=== PATIENT | female | born 1930 | race Caucasian/White ===

== ENCOUNTER 2017-02-01 12:44 | Emergency (ER) | payer MEDICARE, OTHER ==
--- NOTE | 2017-02-01 13:50 | RAD ---
Indication: Shortness of breath. History of chronic obstructive pulmonary disease. History of tobacco use. Comparison: April 04, 2016 chest radiograph and April 04, 2011 CT. Technique: Upright AP 1332 hours Report: Elevated lung volumes and both diffuse mild prominence of the interstitial markings and patchy rarefaction of the mid to upper lung zone interstitial markings. En face calcification at the level of the anterior RIGHT third rib is unchanged compared with the 2010 CT without concern. Mild bibasilar alveolar consolidation may represent atelectasis or inflammatory infiltrate. Negative for cardiomegaly. Unremarkable central pulmonary vasculature and mediastinal contours. Markedly advanced arthropathy of the glenohumeral joints which may reflect inflammatory arthropathy with secondary degenerative arthropathy or neuropathic arthropathy. IMPRESSION: Stigmata of obstructive lung disease. Bibasilar alveolar opacities may reflect atelectasis or pneumonia.
[2017-02-01 15:18] LABS: Hematocrit 39 % (35-47); Hemoglobin 12.7 g/dl (12.0-16.0); Mean Corpuscular HGB Conc 33 g/dl (31-36); Mean Corpuscular Hemoglobin 34 pg (27-31); Mean Corpuscular Volume 104 fL (80-97); Mean Platelet Volume 8 um3 (7.4-10.4); Red Blood Count 3.72 10^6/ul (4.0-5.4); Red Cell Distribution Width 13 % (10.5-15)
[2017-02-01 15:19] LABS: Add Diff/Slide Review? Slide Review Added; Comments Flag Yes
[2017-02-01] MEDS ORDERED: Levofloxacin 750 MG IVPREMIX(* 750 MG/150 ML BAG IVPB ONE (15:31)
[2017-02-01 15:33] LABS: Albumin 3.8 g/dL (3.2-5.2); BUN/Creatinine Ratio 23.9 (8-20); Calcium 9.5 mg/dL (8.6-10.3); EGFR African American 100.6 (>60); EGFR Non-African American 78.2 (>60); Globulin 3.3 g/dL (2-4); Potassium 3.8 mmol/L (3.5-5.0); Total Bilirubin 0.5 mg/dL (0.2-1.0); Total Protein 7.1 g/dL (6.4-8.9)
[2017-02-01 15:36] LABS: Troponin I 0.01 ng/mL (<0.04)
[2017-02-01] MEDS ORDERED: Albuterol/Ipratropium NEB.SOL* Albuterol 2.5 MG/Ipratropium 0.5 MG 3 ML INH ONE (16:44)
[2017-02-01 17:39] VITALS: BP 121/55
--- NOTE | 2017-02-01 18:34 | ED ---
Leonardo Stern Thomas, scribed for Camilo Wood MD on 02/01/17 at 1318 . Respiratory - HPI Summary HPI Summary: The pt is an 86 y/o F with a Hx of COPD BIBA from [facility] c/o low SaO2. Per EMS, her SaO2 has 81 when EMS arrived. In the ED at the time of examination , her SaO2 is 95. She is on 5L of oxygen at home. In the ambulance, EMS was able to raise her SaO2 to 92. Pt additionally c/o L arm pain (attributed to arthritis), feelings of hotness and coldness. Pt denies CP and SOB. PMHx: COPD, PNA, HLD, HTN, angina, osteoarthritis, mild dementia. PSHx: R mastectomy, neck surgery, back surgery. SHx: former smoker, no illicit drugs, no alcohol. EMS also relays concerns that she has been able to take medication at home for an unclear reason. Her PCP is Dr. Rodriguez. - History of Current Complaint Stated Complaint: DIFF BREATHING Time Seen by Provider: 02/01/17 13:07 Hx Obtained From: Patient, EMS Onset/Duration: Still Present - at home, EMS resports that her SaO2 was 81 Timing: Constant Aggravating Factor(s): Nothing Alleviating Factor(s): Oxygen - NC Associated Signs and Symptoms: Negative - Allergy/Home Medications Allergies/Adverse Reactions: Allergies Allergy/AdvReac Type Severity Reaction Status Date / Time Aspirin Allergy Unknown Unknown Verified 02/21/14 03:48 Reaction Details Pollen Extract Allergy Unknown Unknown Verified 02/21/14 03:48 Reaction Details tape Allergy Intermediate Rash Uncoded 02/21/14 03:48 Home Medications: Home Medications Amoxicillin/Clavulanate TAB* [Augmentin TAB 875*] 875 mg PO BID 02/01/17 [ History Confirmed 02/01/17] Carboxymethylcellulose-Glyceri [Optive] 1 jasen BOTH EYES QID 02/01/17 [History Confirmed 02/01/17] Levothyroxine TAB* [Synthroid 100 MCG TAB*] 100 mcg PO QAM 02/01/17 [History Confirmed 02/01/17] Psyllium [Metamucil] 0.52 gm PO DAILY PRN 02/01/17 [History Confirmed 02/01/17] Sertraline* [Zoloft*] 25 mg PO DAILY 02/01/17 [History Confirmed 02/01/17] PMH/Surg Hx/FS Hx/Imm Hx Previously Healthy: No Endocrine/Hematology History: Reports: Hx Thyroid Disease - hypo Denies: Hx Anticoagulant Therapy, Hx Diabetes, Hx Anemia, Hx Unexplained Bleeding Cardiovascular History: Reports: Hx Angina, Hx Hypercholesterolemia - HLD, Hx Hypertension, Hx Peripheral Vascular Disease Denies: Hx Aneurysm, Hx Angioplasty, Hx Auto Implanted Cardiovert Defib, Hx Cardiac Arrest, Hx Cardiomegaly, Hx Congenital Heart Disease, Hx Congestive Heart Failure, Hx Coronary Artery Disease, Hx Deep Vein Thrombosis, Hx Hypotension, Hx Myocardial Infarction, Hx Pacemaker/ICD, Hx Rheumatic Fever, Hx Syncope, Hx Valvular Heart Disease, Other Cardiovascular Problems/Disorders Respiratory History: Reports: Hx Chronic Bronchitis, Hx Chronic Obstructive Pulmonary Disease (COPD), Hx Pneumonia, Hx Sleep Apnea, Other Respiratory Problems/Disorders - pneumonia Denies: Hx Asthma, Hx Cystic Fibrosis, Hx Lung Cancer, Hx Pleural Effusion, Hx Pulmonary Edema, Hx Pulmonary Embolism, Hx Seasonal Allergies GI History: Reports: Hx Hiatal Hernia, Hx Ulcer, Other GI Disorders - PUD History: Reports: Other Problems/Disorders - STRESS INCONTENENCE Denies: Hx Renal Disease Musculoskeletal History: Reports: Hx Arthritis, Hx Back Problems - SPINAL STENOSIS, BACK PAIN, Hx Orthopedic Injury - RIGHT FOOT FX, Hx Osteoporosis Denies: Hx Bursitis, Hx Congenital Bone Abnormalities, Hx Fibromyalgia, Hx Gout, Hx Scoliosis, Hx Tendonitis, Other Musculoskeletal History Sensory History: Reports: Hx Cataracts, Hx Contacts or Glasses Denies: Hx Eye Injury, Hx Eye Prosthesis, Hx Glaucoma, Hx Macular Degeneration, Hx Vision Problem, Hx Deafness, Hx Hearing Aid, Hx Hearing Problem , Other Sensory Impairments Opthamlomology History: Reports: Hx Cataracts, Hx Contacts or Glasses Denies: Hx Eye Injury, Hx Eye Prosthesis, Hx Glaucoma, Hx Macular Degeneration, Hx Vision Problem, Other Sensory Impairments Neurological History: Reports: Hx Dementia - mild, Hx Migraine - Takes meds for migraines, Other Neuro Impairments/Disorders - NEUROPATHY HANDS & FEET Denies: Hx Seizures Psychiatric History: Denies: Hx Substance Abuse - Cancer History Cancer Type, Location and Year: breast cancer masectomy to rt breast 1974 Hx Palliative Cancer Treatment: No - Surgical History Surgery Procedure, Year, and Place: RIGHT MASTECTOMY,. LT GSV STRIPPED YEARS AND YEARS AGO. Back Surgery- 1998 and 2002. Neck Surgery- 2003. Cataract surgery 2012. gall bladder, ulcert, masectomy, hernia. 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 Negative: Shortness Of Breath All Other Systems Reviewed And Are Negative: Yes Physical Exam Triage Information Reviewed: Yes Vital Signs On Initial Exam: Initial Vitals Temp Pulse Resp BP Pulse Ox 99 F 78 18 119/67 96 02/01/17 13:20 02/01/17 13:20 02/01/17 13:20 02/01/17 13:20 02/01/17 13:20 Vital Signs Reviewed: Yes Appearance: Positive: Well-Appearing, No Pain Distress Skin: Positive: Warm, Skin Color Reflects Adequate Perfusion, Dry Head/Face: Positive: Normal Head/Face Inspection Eyes: Positive: Normal ENT: Positive: Normal ENT inspection Neck: Positive: Supple, Nontender Respiratory/Lung Sounds: Positive: Clear to Auscultation, Breath Sounds Present Cardiovascular: Positive: RRR Abdomen Description: Positive: Nontender, Soft Bowel Sounds: Positive: Present Musculoskeletal: Positive: Normal, Strength/ROM Intact Neurological: Positive: Normal Psychiatric: Positive: Normal, Affect/Mood Appropriate Diagnostics - Vital Signs Vital Signs Temp Pulse Resp BP Pulse Ox 02/01/17 17:41 97.9 F 80 19 121/55 02/01/17 17:30 77 17 121/55 92 02/01/17 17:08 78 18 99 02/01/17 17:03 76 14 140/65 87 02/01/17 17:00 72 15 71/42 98 02/01/17 16:30 74 16 120/54 96 02/01/17 16:27 74 18 122/51 97 02/01/17 15:59 74 16 96 02/01/17 15:58 74 97 02/01/17 15:56 124/60 02/01/17 15:53 97 02/01/17 15:02 97.8 F 74 17 135/67 99 02/01/17 13:24 99 F 85 18 119/67 96 02/01/17 13:20 99 F 78 18 119/67 96 - Laboratory Lab Results: Lab Results 02/01/17 02/01/17 02/01/17 Range/Units 15:10 15:10 15:10 WBC 21.0 H (3.5-10.8) 10^3/ul RBC 3.72 L (4.0-5.4) 10^6/ul Hgb 12.7 (12.0-16.0) g/dl Hct 39 (35-47) % MCV 104 H (80-97) fL MCH 34 H (27-31) pg MCHC 33 (31-36) g/dl RDW 13 (10.5-15) % Plt Count 320 (150-450) 10^3/ul MPV 8 (7.4-10.4) um3 Neut % (Auto) 85.3 H (38-83) % Lymph % (Auto) 5.8 L (25-47) % Kern % (Auto) 8.2 (1-9) % Eos % (Auto) 0 (0-6) % Baso % (Auto) 0.7 (0-2) % Absolute Neuts (auto) 17.9 H (1.5-7.7) 10^3/ul Absolute Lymphs (auto) 1.2 (1.0-4.8) 10^3/ul Absolute Monos (auto) 1.7 H (0-0.8) 10^3/ul Absolute Eos (auto) 0 (0-0.6) 10^3/ul Absolute Basos (auto) 0.1 (0-0.2) 10^3/ul Absolute Nucleated RBC 0.01 10^3/ul Nucleated RBC % 0 INR (Anticoag Therapy) 1.02 (0.89-1.11) D-Dimer, Quantitative < 200 (Less Than 230) ng/mL Sodium 137 (133-145) mmol/L Potassium 3.8 (3.5-5.0) mmol/L Chloride 100 L (101-111) mmol/L Carbon Dioxide 31 (22-32) mmol/L Anion Gap 6 (2-11) mmol/L BUN 17 (6-24) mg/dL Creatinine 0.71 (0.51-0.95) mg/dL Est GFR ( Amer) 100.6 (>60) Est GFR (Non-Af Amer) 78.2 (>60) BUN/Creatinine Ratio 23.9 H (8-20) Glucose 121 H (70-100) mg/dL Lactic Acid (0.5-2.0) mmol/L Calcium 9.5 (8.6-10.3) mg/dL Total Bilirubin 0.50 (0.2-1.0) mg/dL AST 14 (13-39) U/L ALT 6 L (7-52) U/L Alkaline Phosphatase 81 (34-104) U/L Troponin I 0.01 (<0.04) ng/mL B-Natriuretic Peptide ( - 100) pg/mL Total Protein 7.1 (6.4-8.9) g/dL Albumin 3.8 (3.2-5.2) g/dL Globulin 3.3 (2-4) g/dL Albumin/Globulin Ratio 1.2 (1-3) 02/01/17 02/01/17 Range/Units 15:10 15:10 WBC (3.5-10.8) 10^3/ul RBC (4.0-5.4) 10^6/ul Hgb (12.0-16.0) g/dl Hct (35-47) % MCV (80-97) fL MCH (27-31) pg MCHC (31-36) g/dl RDW (10.5-15) % Plt Count (150-450) 10^3/ul MPV (7.4-10.4) um3 Neut % (Auto) (38-83) % Lymph % (Auto) (25-47) % Kern % (Auto) (1-9) % Eos % (Auto) (0-6) % Baso % (Auto) (0-2) % Absolute Neuts (auto) (1.5-7.7) 10^3/ul Absolute Lymphs (auto) (1.0-4.8) 10^3/ul Absolute Monos (auto) (0-0.8) 10^3/ul Absolute Eos (auto) (0-0.6) 10^3/ul Absolute Basos (auto) (0-0.2) 10^3/ul Absolute Nucleated RBC 10^3/ul Nucleated RBC % INR (Anticoag Therapy) (0.89-1.11) D-Dimer, Quantitative (Less Than 230) ng/mL Sodium (133-145) mmol/L Potassium (3.5-5.0) mmol/L Chloride (101-111) mmol/L Carbon Dioxide (22-32) mmol/L Anion Gap (2-11) mmol/L BUN (6-24) mg/dL Creatinine (0.51-0.95) mg/dL Est GFR ( Amer) (>60) Est GFR (Non-Af Amer) (>60) BUN/Creatinine Ratio (8-20) Glucose (70-100) mg/dL Lactic Acid 1.2 (0.5-2.0) mmol/L Calcium (8.6-10.3) mg/dL Total Bilirubin (0.2-1.0) mg/dL AST (13-39) U/L ALT (7-52) U/L Alkaline Phosphatase (34-104) U/L Troponin I (<0.04) ng/mL B-Natriuretic Peptide 69 ( - 100) pg/mL Total Protein (6.4-8.9) g/dL Albumin (3.2-5.2) g/dL Globulin (2-4) g/dL Albumin/Globulin Ratio (1-3) Result Diagrams: 02/01/17 15:10 02/01/17 15:10 Lab Statement: Any lab studies that have been ordered have been reviewed, and results considered in the medical decision making process. - Radiology CXR Xray Interpretation: Positive (See Comments) - Stigmata of obstructive lung disease. Bibasilar alveolar opacities may reflect atelectasis or pneumonia. Radiology Interpretation Completed By: Radiologist - EKG 17:30 Cardiac Rate: NL - 79 BPM EKG Interpretation: Sinus rhythm. Nonspecific anterolateral changes, consistent with 04/04/16. Disposition - Course Course Of Treatment: Ms. Pyle reportedly had a low SPO2 at [facility]. She is normally on 5 L O2 by OR and was kept on that by the EMS crew and she maintained her sats for them. Here, she was found to have pneumonia and I am concerned that she will end up in the hospital but she is quite stable now and so she was given the first dose of antibiotics IV and D/C'd with PO Levaquin for F/U. - Diagnoses Provider Diagnoses: Pneumonia Discharge - Discharge Plan Condition: Stable Disposition: HOME Prescriptions: Levofloxacin TAB* [Levaquin TAB*] 750 mg PO DAILY #10 tab Methylprednisolone [Medrol Dosepak 4 MG*] 4 mg PO .SEE HECTOR INSTRUCTION #1 tab Patient Education Materials: Pneumonia (ED) Referrals: Sheryl Rodriguez MD [Primary Care Provider] - 3 Days Additional Instructions: Follow up with your doctor. The documentation as recorded by the Leonardo jerry Thomas accurately reflects the service I personally performed and the decisions made by me, Camilo Wood MD.
== END 2017-02-01 18:03 | disposition home or self-care (01) ==
LOC: ED 12:44
DX: J18.9 Pneumonia, unspecified organism (principal); Z87.891 Personal history of nicotine dependence
CPT/HCPCS: 36415; 71010; 80053; 83605; 83880; 84484; 85025; 85379; 85610; 93005; 94640; 99283; A9270-GY

== ENCOUNTER 2017-02-15 19:42 | Inpatient (IN) | payer MEDICARE, OTHER ==
[2017-02-15] MEDS ORDERED: Albuterol/Ipratropium NEB.SOL* Albuterol 2.5 MG/Ipratropium 0.5 MG 3 ML INH ONE ×2 (20:09→21:03)
--- NOTE | 2017-02-15 20:53 | RAD ---
INDICATION: Shortness of breath. COMPARISON: Comparison is made with prior chest x-ray studies from June 28, 2015 and February 01, 2017. TECHNIQUE: A portable view of the chest was obtained. FINDINGS: Cardiac and mediastinal contours appear to be within normal limits. There is calcification which projects over the right upper lobe. The lungs are underinflated. There are small bibasilar infiltrates. No pleural effusion is seen. Note is made of severe osteoarthritic change in the shoulders. IMPRESSION: SMALL BIBASILAR INFILTRATES.
[2017-02-15] MEDS ORDERED: methylPREDNISolone 125 MG* 2 ML VIAL IV ONE (21:03)
[2017-02-15 21:23] LABS: Hematocrit 37 % (35-47); Hemoglobin 12.5 g/dl (12.0-16.0); Mean Corpuscular HGB Conc 34 g/dl (31-36); Mean Corpuscular Hemoglobin 35 pg (27-31); Mean Corpuscular Volume 103 fL (80-97); Mean Platelet Volume 7 um3 (7.4-10.4); Red Blood Count 3.59 10^6/ul (4.0-5.4); Red Cell Distribution Width 13 % (10.5-15); White Blood Count 7.1 10^3/ul (3.5-10.8)
[2017-02-15 21:38] LABS: Albumin 3.7 g/dL (3.2-5.2); BUN/Creatinine Ratio 27.7 (8-20); C Reactive Protein 4.43 mg/L (< 5.00); Calcium 9.3 mg/dL (8.6-10.3); EGFR African American 111.4 (>60); EGFR Non-African American 86.6 (>60); Globulin 3.1 g/dL (2-4); Potassium 4.1 mmol/L (3.5-5.0); Total Bilirubin 0.2 mg/dL (0.2-1.0); Total Protein 6.8 g/dL (6.4-8.9)
[2017-02-15 21:40] LABS: Troponin I 0.03 ng/mL (<0.04)
[2017-02-15] MEDS ORDERED: Butalb/Acetamin/Caff TAB* 1 TAB ONE (21:46)
[2017-02-15] MEDS ORDERED: Butalb/Acetamin/Caff TAB* 1 TAB PO ONE (21:49)
[2017-02-15] MEDS ORDERED: Azithromycin TAB* 250 MG PO ONE (22:36)
[2017-02-15] MEDS ORDERED: Magnesium Hydroxide LIQ* 30 ML UDC PO PRN (22:49)
--- NOTE | 2017-02-15 22:56 | PN ---
Nicolasa Stern SooYoung, scribed for Henok Leigh on 02/15/17 at 2255 . Progress Note - Progress Note Date of Service: 02/15/17 Note: SO by Dr. Wood at shift change pending hospitalist seeing pt in ED. 2200: Consulted with Dr. Rueda, hospitalist Will accept pt for admission. DX: PNA The documentation as recorded by the cliffordibNicolasa stephens SooYoung accurately reflects the service I personally performed and the decisions made by Lu farr Emmanuel.
[2017-02-16] MEDS: fentaNYL PATCH 75 MCG/HR* 75 MCG TRANSDERM SCH (00:30)
[2017-02-16] MEDS: Butalb/Acetamin/Caff TAB* 1 TAB PO PRN ×3 (00:38→21:59)
[2017-02-16] MEDS: Albuterol 2.5 MG/3 ML NEB.SOL* (0.083%) INH SCH ×4 (01:18→19:40)
--- NOTE | 2017-02-16 02:22 | HP ---
CC: Dr. Sheryl Rodriguez * HISTORY AND PHYSICAL: DATE OF ADMISSION: 02/15/17 PRIMARY CARE PROVIDER: Dr. Sheryl Rodriguez. ATTENDING PHYSICIAN: Dr. Tigre Rueda * (dictated by Roseanna Jensen NP) CHIEF COMPLAINT: Shortness of breath. HISTORY OF PRESENT ILLNESS: Ms. Pyle is an 86-year-old female with a past medical history significant for hypertension; sleep apnea, uses a BiPAP; chronic obstructive pulmonary disease, on supplemental oxygen; hypothyroidism; spinal stenosis; peptic ulcer disease; depression; migraines; chronic back pain who presents to the emergency room from [facility] with complaints of increased shortness of breath. The patient reports that she was seen recently approximately 2 weeks ago in the emergency room and was diagnosed with a pneumonia. She was sent home and completed her 10-day course of Levaquin and Medrol Dosepak. The patient states that she had been feeling better each day after her last hospitalization in October and in addition to feeling better since her pneumonia diagnosis, but the patient reports that this evening she developed troubled breathing that was not relieved by her inhaler. She reports that since her pneumonia diagnosis that she would increase her oxygen use to 5 L but prior to that, she had been on oxygen at 3 L at rest and 5 L with walking. The patient denies any fever, chills, chest pain, nausea, vomiting, diarrhea, urinary symptoms, although she does endorse feeling "hot." She was unable to find anything that made her breathing better or worse. She denies any urinary symptoms, but does report constipation due to chronic and narcotic use for her chronic back pain. The patient was brought to the emergency room for further evaluation of her symptoms. While in the emergency room, the patient received IV Solu-Medrol in addition to DuoNeb. The patient was on 5 L nasal cannula, satting 100% on 5 L. The patient also had a chest x-ray showing small bilateral infiltrates. She had labs that were fairly unremarkable and Hospitalists were asked to evaluate the patient for admission. PAST MEDICAL HISTORY: 1. Hypertension. 2. Sleep apnea, with BiPAP. 3. Chronic obstructive pulmonary disease, with supplemental oxygen. 4. Hypothyroidism. 5. Spinal stenosis. 6. Osteoporosis. 7. Peptic ulcer disease. 8. Depression. 9. Migraines. 10. Chronic back pain. 11. Breast cancer. PAST SURGICAL HISTORY: 1. Status post cholecystectomy. 2. Status post mastectomy. 3. Status post cataract extraction. 4. Status post tonsillectomy. HOME MEDICATIONS: Include: 1. Oxycodone 15 mg oral every 4 hours as needed while awake. 2. Guaifenesin ER 600 mg oral twice daily. 3. Fentanyl patch 75 mcg transdermally every 72 hours. 4. Amlodipine 5 mg oral every morning. 5. Spiriva 1 capsule inhalation daily. 6. Sertraline 75 mg oral daily. 7. Metamucil 0.52 g oral daily as needed for constipation. 8. Protonix 40 mg oral daily. 9. Nystatin powder apply topical twice daily as needed for itching. 10. Multivitamin 1 tablet oral daily. 11. Ocuvite I vitamin 1 tablet oral daily. 12. Milk of magnesia 30 mg oral daily as needed for constipation. 13. Levothyroxine 100 mcg oral every morning. 14. Gabapentin 300 mg oral 3 times daily. 15. Advair Diskus 500/50 one puff inhalation twice daily. 16. Flonase 1 spray to both nares daily. 17. Colace 100 mg oral daily. 18. Depakote ER 500 mg oral every evening. 19. Refresh eye drops one drop to both eyes twice daily. 20. Viactiv 500-500-40 one oral daily. 21. Fioricet 1 tablet oral every 6 hours as needed for headache, maximum of 14 tablets a week. 22. Combivent inhaler 1 puff inhalation every 4 hours as needed for shortness of breath or wheeze. 23. DuoNeb 1 nebulizer inhalation 3 times daily as needed for shortness of breath or wheeze. 24. EasiVent inhaler daily as needed for shortness of breath. 25. Ciclopirox 1% shampoo topical to hair every 48 hours. ALLERGIES: ASPIRIN, POLLEN, ADHESIVE. FAMILY HISTORY: The patient denies any family history of coronary artery disease, diabetes mellitus. The patient's sister had a history of breast cancer. SOCIAL HISTORY: The patient is a former smoker, quitting many years ago. She had a [id number] history of one pack a day smoking. The patient denies alcohol or recreational drug use. The patient lives at [facility]. Her daughter, Sasha Pyle, will be her surrogate decision maker in the event she is unable to make decision for herself. REVIEW OF SYSTEMS: I performed a 14-point review of systems. All the pertinent positives and negatives are mentioned in the history of present illness. The remaining review of systems is negative. PHYSICAL EXAMINATION GENERAL APPEARANCE: The patient is alert, pleasant, appears to be in no acute distress. VITAL SIGNS: Temperature 98.5, heart rate 81, respiratory rate 28, O2 sat 100% on 5 L via nasal cannula, blood pressure 151/70. HEENT: Normocephalic, atraumatic. Pupils are equal and reactive to light. Extraocular movements are intact. RESPIRATORY: There is no accessory muscle use and lungs are clear, but diminished bilaterally. CARDIOVASCULAR: Regular rate and rhythm. S1 and S2 present. There are no murmurs, rubs, or gallops heard. ABDOMEN: Soft, nontender, and nondistended. There are bowel sounds present x4. EXTREMITIES: There is no lower extremity edema. DP and PT pulses are 2+ and symmetric. MUSCULOSKELETAL: There is no clubbing or cyanosis noted. The patient exhibits good strength in all extremities. NEUROLOGIC: The patient is alert and oriented x4. Cranial nerves II through XII are grossly intact. PSYCHOLOGICAL: The patient is calm and cooperative. SKIN: There are no rashes or abnormalities seen. DIAGNOSTIC STUDIES/LABORATORY DATA: Sodium 137, potassium 4.1, chloride 102, CO2 32, BUN 18, creatinine 0.65, glucose 124. White blood cell count 7.1, hemoglobin 12.5, hematocrit 37, and platelet count 395. Troponin 0.03. BNP of 59, D-dimer of less than 200. EKG shows sinus rhythm with rate of 72. There are no acute signs of ischemia. This EKG is similar to previous EKG from 02/01/17. Chest x-ray from today. Radiologist's impression: Small bilateral infiltrate. IMPRESSION: Ms. Pyle is an 86-year-old female with past medical history significant for hypertension, chronic obstructive pulmonary disease, hypothyroidism, sleep apnea, spinal stenosis, peptic ulcer disease, depression, migraines, chronic back pain who presents to the emergency room with complaints of shortness of breath. She will be admitted as an inpatient for chronic obstructive pulmonary disease exacerbation. ASSESSMENT AND PLAN: 1. Shortness of breath. I suspect this is secondary to chronic obstructive pulmonary disease exacerbation. The patient is feeling better in the emergency room after IV Solu-Medrol and a DuoNeb. The patient will be continued on oral prednisone in addition to azithromycin. We will place her on routine albuterol nebulizers while awake. The patient will be continued on her usual supplemental oxygen of 3 L via nasal cannula while at rest and 5 while ambulating. We will continue the patient on her home medications of Spiriva and Advair. 2. Chronic respiratory failure. This is secondary to her chronic obstructive pulmonary disease. The patient will be continued on her home O2. 3. Depression. The patient will be continued on her home sertraline and Depakote. 4. Sleep apnea. Continue the patient on oxygen tonight. We will verify her BiPAP settings and she will use her BiPAP at bedtime. 5. Chronic pain. The patient will be continued on her home fentanyl patch in addition to as-needed oxycodone for her pain and Fioricet for her migraines. 6. Hypertension. The patient will be continued on her home amlodipine. 7. Fluids, electrolytes, and nutrition. The patient will be on a regular diet. 8. Code status. Do not resuscitate. 9. DVT prophylaxis. The patient is at highest risk and will be placed on subcutaneous heparin. 10. Disposition. Inpatient with estimated length of stay 3 days. TIME SPENT: Time for this admission was approximately 60 minutes, greater than half of that was spent with the patient discussing medications, past medical history, and events leading up to her arrival today and performing a physical examination. The case has been reviewed with the attending, Dr. Rueda, who agrees with the plan of care. Reviewed by PARAS HUSAIN 02/16/17 1845 [id number]/[facility] #: [id number] LAURITA
[2017-02-16] MEDS: Heparin VIAL(*) 5000 UNITS/ML VIAL (FIVE THOUSAND) SUBCUT SCH ×3 (06:43→21:09)
[2017-02-16] MEDS: Tiotropium CAP.INH* CAP.INH/18 MCG INH SCH (07:18)
[2017-02-16] MEDS: Mometasone/Formoter 200/5 MDI INH SCH ×2 (07:18→20:15)
[2017-02-16] MEDS: fentaNYL Patch Check Q Shift 1 NOTE SCH ×2 (07:38→19:04)
[2017-02-16] MEDS: Levothyroxine TAB* 100 MCG TAB PO SCH (07:48)
[2017-02-16] MEDS: predniSONE TAB* 20 MG PO SCH (08:37)
[2017-02-16] MEDS: Omeprazole CAP* 20 MG PO SCH (08:37)
[2017-02-16] MEDS: Docusate CAP* 100 MG PO SCH (08:37)
[2017-02-16] MEDS: Multivitamins/Minerals TAB PO SCH (08:37)
[2017-02-16] MEDS: Gabapentin CAP(*) 300 MG PO SCH ×3 (08:37→21:07)
[2017-02-16] MEDS: guaiFENesin ER TAB 600 MG PO SCH ×2 (08:37→21:07)
[2017-02-16] MEDS: Sertraline* 25 MG TAB PO SCH (08:43)
[2017-02-16] MEDS: Artificial Tears* 15 ML BTL BOTH EYES SCH ×2 (08:44→21:09)
[2017-02-16] MEDS: Fluticasone NASAL SPRAY 50MCG* 16 gm SPRAY BTL BOTH NARES SCH (08:45)
[2017-02-16] MEDS: Sertraline* 50 MG TAB PO SCH (08:45)
[2017-02-16] MEDS ORDERED: Amoxicillin/Clavulanate TAB* 875 MG PO SCH (09:00)
[2017-02-16] MEDS ORDERED: amLODIPine TAB* 5 MG PO SCH (09:00)
[2017-02-16] MEDS ORDERED: Spiriva Inhaler DEVICE* 1 EACH DEVICE INH ONE (09:00)
[2017-02-16] MEDS: Multivitamins/Minera Areds(NF) 1 CAP CAP PO SCH (09:11)
[2017-02-16] MEDS: oxyCODONE TAB* 5 MG TAB PO PRN ×2 (09:29→22:07)
--- NOTE | 2017-02-16 11:36 | ED ---
Rony Stern Nikita, scribed for Camilo Wood MD on 02/15/17 at 2008 . Shortness of Breath - HPI Summary HPI Summary: Pt is a 86 y/o F BIBA from [facility] who presents to the ED c/o of SOB since 1600. SOB characterized as dyspnea at rest. Sx aggravated and alleviated by nothing. 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 Pt was previously in the ED on 02/01/17 for PNA. She was sent home on 5L of O2. PMHx of COPD. - History of Current Complaint Chief Complaint: EDShortnessOfBreath Time Seen by Provider: 02/15/17 19:50 Hx Obtained From: Patient Onset/Duration: Lasting Hours - Since 1599, Still Present Timing: Constant Dyspnea At: Rest Aggrevating Factors: Nothing Alleviating Factors: Nothing - Allergy/Home Medications Allergies/Adverse Reactions: Allergies Allergy/AdvReac Type Severity Reaction Status Date / Time Aspirin Allergy Unknown Unknown Verified 02/15/17 19:56 Reaction Details Pollen Extract Allergy Unknown Unknown Verified 02/15/17 19:56 Reaction Details tape Allergy Intermediate Rash Uncoded 02/15/17 19:56 Home Medications: Home Medications Spacer/Aerosol-Holding Chamber [Easivent] 1 mis INH DAILY PRN 02/15/17 [History Confirmed 02/15/17] PMH/Surg Hx/FS Hx/Imm Hx Endocrine/Hematology History: Reports: Hx Thyroid Disease - hypo Denies: Hx Anticoagulant Therapy, Hx Diabetes, Hx Anemia, Hx Unexplained Bleeding Cardiovascular History: Reports: Hx Angina, Hx Hypercholesterolemia - HLD, Hx Hypertension, Hx Peripheral Vascular Disease Denies: Hx Aneurysm, Hx Angioplasty, Hx Auto Implanted Cardiovert Defib, Hx Cardiac Arrest, Hx Cardiomegaly, Hx Congenital Heart Disease, Hx Congestive Heart Failure, Hx Coronary Artery Disease, Hx Deep Vein Thrombosis, Hx Hypotension, Hx Myocardial Infarction, Hx Pacemaker/ICD, Hx Rheumatic Fever, Hx Syncope, Hx Valvular Heart Disease, Other Cardiovascular Problems/Disorders Respiratory History: Reports: Hx Chronic Bronchitis, Hx Chronic Obstructive Pulmonary Disease (COPD), Hx Pneumonia, Hx Sleep Apnea, Other Respiratory Problems/Disorders - pneumonia Denies: Hx Asthma, Hx Cystic Fibrosis, Hx Lung Cancer, Hx Pleural Effusion, Hx Pulmonary Edema, Hx Pulmonary Embolism, Hx Seasonal Allergies GI History: Reports: Hx Hiatal Hernia, Hx Ulcer, Other GI Disorders - PUD History: Reports: Other Problems/Disorders - STRESS INCONTENENCE Denies: Hx Renal Disease Musculoskeletal History: Reports: Hx Arthritis, Hx Back Problems - SPINAL STENOSIS, BACK PAIN, Hx Orthopedic Injury - RIGHT FOOT FX, Hx Osteoporosis Denies: Hx Bursitis, Hx Congenital Bone Abnormalities, Hx Fibromyalgia, Hx Gout, Hx Scoliosis, Hx Tendonitis, Other Musculoskeletal History Sensory History: Reports: Hx Cataracts, Hx Contacts or Glasses Denies: Hx Eye Injury, Hx Eye Prosthesis, Hx Glaucoma, Hx Macular Degeneration, Hx Vision Problem, Hx Deafness, Hx Hearing Aid, Hx Hearing Problem , Other Sensory Impairments Opthamlomology History: Reports: Hx Cataracts, Hx Contacts or Glasses Denies: Hx Eye Injury, Hx Eye Prosthesis, Hx Glaucoma, Hx Macular Degeneration, Hx Vision Problem, Other Sensory Impairments Neurological History: Reports: Hx Dementia - mild, Hx Migraine - Takes meds for migraines, Other Neuro Impairments/Disorders - NEUROPATHY HANDS & FEET Denies: Hx Seizures Psychiatric History: Denies: Hx Substance Abuse - Cancer History Cancer Type, Location and Year: breast cancer masectomy to rt breast 1974 Hx Palliative Cancer Treatment: No - Surgical History Surgery Procedure, Year, and Place: RIGHT MASTECTOMY,. LT GSV STRIPPED YEARS AND YEARS AGO. Back Surgery- 1998 and 2002. Neck Surgery- 2003. Cataract surgery 2011. gall bladder, ulcert, masectomy, hernia. 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 Denies: Hx Hepatitis, Hx Human Immunodeficiency Virus (HIV), Hx Tuberculosis , Traveled Outside the [place] in Last 30 Days - Family History Known Family History: Negative: Cardiac Disease - Social History Alcohol Use: None Hx Substance Use: No Substance Use Type: Reports: None Hx Tobacco Use: Yes Smoking Status (MU): Former Smoker Type: Cigarettes Length of Time of Smoking/Using Tobacco: 35 years Have You Smoked in the Last Year: No Review of Systems Negative: Fever Positive: Shortness Of Breath - dyspnea at rest All Other Systems Reviewed And Are Negative: Yes Physical Exam Triage Information Reviewed: Yes Vital Signs On Initial Exam: Initial Vitals Temp Pulse Resp BP Pulse Ox 98.7 F 77 20 130/71 100 02/15/17 19:43 02/15/17 19:43 02/15/17 19:43 02/15/17 19:43 02/15/17 19:43 Vital Signs Reviewed: Yes Appearance: Positive: Well-Appearing, No Pain Distress Skin: Positive: Warm, Skin Color Reflects Adequate Perfusion, Dry Head/Face: Positive: Normal Head/Face Inspection Eyes: Positive: Normal ENT: Positive: Normal ENT inspection Neck: Positive: Supple, Nontender Respiratory/Lung Sounds: Positive: Clear to Auscultation, Breath Sounds Present Cardiovascular: Positive: RRR Abdomen Description: Positive: Nontender, Soft Bowel Sounds: Positive: Present Musculoskeletal: Positive: Normal Neurological: Positive: Normal Psychiatric: Positive: Normal, Affect/Mood Appropriate Diagnostics - Vital Signs Vital Signs Temp Pulse Resp BP Pulse Ox 02/15/17 19:43 98.7 F 77 20 130/71 100 - Laboratory Lab Results: Lab Results 02/15/17 02/15/17 02/15/17 Range/Units 21:11 21:11 21:11 WBC 7.1 (3.5-10.8) 10^3/ul RBC 3.59 L (4.0-5.4) 10^6/ul Hgb 12.5 (12.0-16.0) g/dl Hct 37 (35-47) % MCV 103 H (80-97) fL MCH 35 H (27-31) pg MCHC 34 (31-36) g/dl RDW 13 (10.5-15) % Plt Count 395 (150-450) 10^3/ul MPV 7 L (7.4-10.4) um3 Neut % (Auto) 71.2 (38-83) % Lymph % (Auto) 14.8 L (25-47) % Hendry % (Auto) 11.9 H (1-9) % Eos % (Auto) 1.6 (0-6) % Baso % (Auto) 0.5 (0-2) % Absolute Neuts (auto) 5.0 (1.5-7.7) 10^3/ul Absolute Lymphs (auto) 1.0 (1.0-4.8) 10^3/ul Absolute Monos (auto) 0.8 (0-0.8) 10^3/ul Absolute Eos (auto) 0.1 (0-0.6) 10^3/ul Absolute Basos (auto) 0 (0-0.2) 10^3/ul Absolute Nucleated RBC 0 10^3/ul Nucleated RBC % 0 INR (Anticoag Therapy) 0.87 L (0.89-1.11) D-Dimer, Quantitative < 200 (Less Than 230) ng/mL Sodium 137 (133-145) mmol/L Potassium 4.1 (3.5-5.0) mmol/L Chloride 102 (101-111) mmol/L Carbon Dioxide 32 (22-32) mmol/L Anion Gap 3 (2-11) mmol/L BUN 18 (6-24) mg/dL Creatinine 0.65 (0.51-0.95) mg/dL Est GFR ( Amer) 111.4 (>60) Est GFR (Non-Af Amer) 86.6 (>60) BUN/Creatinine Ratio 27.7 H (8-20) Glucose 124 H (70-100) mg/dL Lactic Acid (0.5-2.0) mmol/L Calcium 9.3 (8.6-10.3) mg/dL Total Bilirubin 0.20 (0.2-1.0) mg/dL AST 14 (13-39) U/L ALT 7 (7-52) U/L Alkaline Phosphatase 80 (34-104) U/L Troponin I 0.03 (<0.04) ng/mL C-Reactive Protein 4.43 (< 5.00) mg/L B-Natriuretic Peptide ( - 100) pg/mL Total Protein 6.8 (6.4-8.9) g/dL Albumin 3.7 (3.2-5.2) g/dL Globulin 3.1 (2-4) g/dL Albumin/Globulin Ratio 1.2 (1-3) 02/15/17 02/15/17 Range/Units 21:11 21:11 WBC (3.5-10.8) 10^3/ul RBC (4.0-5.4) 10^6/ul Hgb (12.0-16.0) g/dl Hct (35-47) % MCV (80-97) fL MCH (27-31) pg MCHC (31-36) g/dl RDW (10.5-15) % Plt Count (150-450) 10^3/ul MPV (7.4-10.4) um3 Neut % (Auto) (38-83) % Lymph % (Auto) (25-47) % Hendry % (Auto) (1-9) % Eos % (Auto) (0-6) % Baso % (Auto) (0-2) % Absolute Neuts (auto) (1.5-7.7) 10^3/ul Absolute Lymphs (auto) (1.0-4.8) 10^3/ul Absolute Monos (auto) (0-0.8) 10^3/ul Absolute Eos (auto) (0-0.6) 10^3/ul Absolute Basos (auto) (0-0.2) 10^3/ul Absolute Nucleated RBC 10^3/ul Nucleated RBC % INR (Anticoag Therapy) (0.89-1.11) D-Dimer, Quantitative (Less Than 230) ng/mL Sodium (133-145) mmol/L Potassium (3.5-5.0) mmol/L Chloride (101-111) mmol/L Carbon Dioxide (22-32) mmol/L Anion Gap (2-11) mmol/L BUN (6-24) mg/dL Creatinine (0.51-0.95) mg/dL Est GFR ( Amer) (>60) Est GFR (Non-Af Amer) (>60) BUN/Creatinine Ratio (8-20) Glucose (70-100) mg/dL Lactic Acid 1.4 (0.5-2.0) mmol/L Calcium (8.6-10.3) mg/dL Total Bilirubin (0.2-1.0) mg/dL AST (13-39) U/L ALT (7-52) U/L Alkaline Phosphatase (34-104) U/L Troponin I (<0.04) ng/mL C-Reactive Protein (< 5.00) mg/L B-Natriuretic Peptide 59 ( - 100) pg/mL Total Protein (6.4-8.9) g/dL Albumin (3.2-5.2) g/dL Globulin (2-4) g/dL Albumin/Globulin Ratio (1-3) Result Diagrams: 02/15/17 21:11 02/15/17 21:11 Lab Statement: Any lab studies that have been ordered have been reviewed, and results considered in the medical decision making process. - Radiology CXR Xray Interpretation: No Acute Changes - SMALL BIBASILAR INFILTRATES. Radiology Interpretation Completed By: Radiologist - EKG 2022 Cardiac Rate: NL - 72 bpm EKG Rhythm: Sinus Rhythm ST Segment: Non-Specific - Non-specific ST changes Course/Dx - Course Course Of Treatment: Ms. Pyle presented with a hhistory of being SOB and having a low SPO2 at the [place] as wel as in the EMS rig. She was placed on a NRBM which helped and on arrival here she was comfortable being put back on her 5l NC which is normal for her. She had reduced BS's and was treated with nebs and solumedrol. She had been diagnosed with pneumonia a couple weeks ago and had improved until now. Her CXR still shows some infiltrate but I think it is improved from 2 weeks ago. Her leukocytosis has resolved. She will likely need more time for the steroids to work and the hospitalists have been consulted. - Diagnoses Provider Diagnoses: COPD exacerbation - Physician Notifications Discussed Care of Patient With: Tigre Rueda Time Discussed With Above Provider: 21:02 Instructed by Provider To: MD Will See In ED - Critical Care Time Critical Care Time: 30-74 min Discharge - Discharge Plan Condition: Stable Disposition: OTHER Discharge Disposition Comment: Pt will be signed out to Dr. Leigh, pending dispo, awaiting MD consult The documentation as recorded by the Rony jerry Nikita accurately reflects the service I personally performed and the decisions made by me, Camilo Wood MD.
--- NOTE | 2017-02-16 15:17 | PN ---
Subjective Date of Service: 02/16/17 Interval History: Pt feels close to her baseline. Usually pt is on 3 L of 02, now comfortable at 2 L Objective Active Medications: Acetaminophen/Butalbital/Caffeine (Fioricet Tab*) 1 tab PO BID PRN PRN Reason: MIGRAINE HEADACHE Last Admin: 02/16/17 09:33 Dose: 1 tab Albuterol (Ventolin 2.5 Mg/3 Ml Neb.Chely*) 2.5 mg INH [id number] AWAKE [facility] Last Admin: 02/16/17 12:46 Dose: 2.5 mg Amlodipine Besylate (Norvasc Tab*) 5 mg PO QAM [facility] Last Admin: 02/16/17 08:44 Dose: 5 mg Divalproex Sodium (Depakote Er Tab(*)) 500 mg PO QPM [facility] Docusate Sodium (Colace Cap*) 100 mg PO DAILY [facility] Last Admin: 02/16/17 08:37 Dose: 100 mg Fentanyl (Duragesic Patch 75 Mcg/Hr*) 75 mcg TRANSDERM Q72H [facility] Last Admin: 02/16/17 00:30 Dose: 75 mcg Fluticasone Propionate (Flonase Nasal [place] 50mcg*) 1 spray BOTH NARES DAILY [facility] Last Admin: 02/16/17 08:45 Dose: 1 spray Gabapentin (Neurontin Cap(*)) 300 mg PO TID [facility] Last Admin: 02/16/17 14:55 Dose: 300 mg Guaifenesin (Mucinex*) 600 mg PO BID [facility] Last Admin: 02/16/17 08:37 Dose: 600 mg Heparin Sodium (Porcine) (Heparin Vial(*)) 5,000 units SUBCUT Q8HR [facility] Last Admin: 02/16/17 14:55 Dose: 5,000 units Levothyroxine Sodium (Synthroid Tab*) 100 mcg PO DAILY@0600 [facility] Last Admin: 02/16/17 07:48 Dose: 100 mcg Magnesium Hydroxide (Milk Of Magnesia Liq*) 30 ml PO DAILY PRN PRN Reason: CONSTIPATION Mometasone Furoate/Formoterol Fumar (Dulera 200/5 Mdi*) 2 puff INH BID [facility] Last Admin: 02/16/17 07:18 Dose: 2 puff Multivitamins/Minerals (Preservision Areds(Multivitamins/Mineral)(Nf)) 1 cap PO DAILY [facility] Last Admin: 02/16/17 09:11 Dose: 1 cap Multivitamins/Minerals (Theragran/Minerals Tab*) 1 tab PO DAILY [facility] Last Admin: 02/16/17 08:37 Dose: 1 tab Omeprazole (Prilosec Cap*) 20 mg PO DAILY@0730 [facility] Last Admin: 02/16/17 08:37 Dose: 20 mg Oxycodone HCl (Roxycodone Tab*) 15 mg PO Q4H PRN PRN Reason: PAIN Last Admin: 02/16/17 09:29 Dose: 15 mg Pharmacy Profile Note (Fentanyl Patch Check Q Shift) 1 note N/A 0700,1900 [facility] Last Admin: 02/16/17 07:38 Dose: 1 note Polyvinyl Alcohol (Polyvinyl Alcohol 1.4% Opth*) 1 drop BOTH EYES BID [facility] Last Admin: 02/16/17 08:44 Dose: 1 drop Prednisone (Deltasone Tab*) 40 mg PO DAILY WITH MEAL [facility] Last Admin: 02/16/17 08:37 Dose: 40 mg Psyllium Hydrophilic Mucilloid (Metamucil Hang*) 1 pkt PO DAILY PRN PRN Reason: CONSTIPATION Sertraline HCl (Zoloft*) 25 mg PO DAILY [facility] Last Admin: 02/16/17 08:43 Dose: 25 mg Sertraline HCl (Zoloft*) 50 mg PO DAILY [facility] Last Admin: 02/16/17 08:45 Dose: 50 mg Tiotropium [place] (Spiriva Cap.Inh*) 1 cap INH DAILY [facility] Last Admin: 02/16/17 07:18 Dose: 1 cap Vital Signs 02/15/17 02/15/17 02/16/17 23:16 23:59 00:38 Temperature 98.4 F Pulse Rate 72 72 Respiratory 18 18 Rate Blood Pressure 151/62 151/62 (mmHg) O2 Sat by Pulse 94 94 Oximetry 02/16/17 02/16/17 02/16/17 01:20 02:38 04:01 Temperature 97.6 F Pulse Rate 79 Respiratory 18 16 16 Rate Blood Pressure 150/62 (mmHg) O2 Sat by Pulse 98 94 Oximetry 02/16/17 02/16/17 02/16/17 07:22 07:48 08:00 Temperature 98.2 F Pulse Rate 78 72 Respiratory 15 16 14 Rate Blood Pressure 149/65 (mmHg) O2 Sat by Pulse 97 94 Oximetry 02/16/17 02/16/17 02/16/17 08:37 09:29 09:33 Temperature Pulse Rate Respiratory 12 14 14 Rate Blood Pressure (mmHg) O2 Sat by Pulse Oximetry 02/16/17 02/16/17 02/16/17 10:37 11:29 11:33 Temperature Pulse Rate Respiratory 18 14 14 Rate Blood Pressure (mmHg) O2 Sat by Pulse Oximetry 02/16/17 02/16/17 12:48 14:55 Temperature Pulse Rate 78 Respiratory 17 12 Rate Blood Pressure (mmHg) O2 Sat by Pulse 92 Oximetry Oxygen Devices in Use Now: Nasal Cannula - at 2 L, 02 sat 92% Appearance: 86 yo F in nAD, AAOx3 Eyes: No Scleral Icterus, PERRLA Ears/Nose/Mouth/Throat: NL Teeth, Lips, Gums, Mucous Membranes Moist Neck: NL Appearance and Movements; NL JVP, Trachea Midline Respiratory: Symmetrical Chest Expansion and Respiratory Effort, Clear to Auscultation, - - distant breath sounds b/l Cardiovascular: RRR Abdominal: NL Sounds; No Tenderness; No Distention, No Hepatosplenomegaly Lymphatic: No Cervical Adenopathy Extremities: No Edema, No Clubbing, Cyanosis Skin: No Rash or Ulcers, No Nodules or Sclerosis Neurological: Alert and Oriented x 3, NL Muscle Strength and Tone Result Diagrams: 02/15/17 21:11 02/15/17 21:11 Additional Lab and Data: Lab Results 02/15/17 02/15/17 02/15/17 Range/Units 21:11 21:11 21:11 WBC 7.1 (3.5-10.8) 10^3/ul RBC 3.59 L (4.0-5.4) 10^6/ul Hgb 12.5 (12.0-16.0) g/dl Hct 37 (35-47) % MCV 103 H (80-97) fL MCH 35 H (27-31) pg MCHC 34 (31-36) g/dl RDW 13 (10.5-15) % Plt Count 395 (150-450) 10^3/ul MPV 7 L (7.4-10.4) um3 Neut % (Auto) 71.2 (38-83) % Lymph % (Auto) 14.8 L (25-47) % Crawford % (Auto) 11.9 H (1-9) % Eos % (Auto) 1.6 (0-6) % Baso % (Auto) 0.5 (0-2) % Absolute Neuts (auto) 5.0 (1.5-7.7) 10^3/ul Absolute Lymphs (auto) 1.0 (1.0-4.8) 10^3/ul Absolute Monos (auto) 0.8 (0-0.8) 10^3/ul Absolute Eos (auto) 0.1 (0-0.6) 10^3/ul Absolute Basos (auto) 0 (0-0.2) 10^3/ul Absolute Nucleated RBC 0 10^3/ul Nucleated RBC % 0 INR (Anticoag Therapy) 0.87 L (0.89-1.11) D-Dimer, Quantitative < 200 (Less Than 230) ng/mL Sodium 137 (133-145) mmol/L Potassium 4.1 (3.5-5.0) mmol/L Chloride 102 (101-111) mmol/L Carbon Dioxide 32 (22-32) mmol/L Anion Gap 3 (2-11) mmol/L BUN 18 (6-24) mg/dL Creatinine 0.65 (0.51-0.95) mg/dL Est GFR ( Amer) 111.4 (>60) Est GFR (Non-Af Amer) 86.6 (>60) BUN/Creatinine Ratio 27.7 H (8-20) Glucose 124 H (70-100) mg/dL Lactic Acid (0.5-2.0) mmol/L Calcium 9.3 (8.6-10.3) mg/dL Total Bilirubin 0.20 (0.2-1.0) mg/dL AST 14 (13-39) U/L ALT 7 (7-52) U/L Alkaline Phosphatase 80 (34-104) U/L Troponin I 0.03 (<0.04) ng/mL C-Reactive Protein 4.43 (< 5.00) mg/L B-Natriuretic Peptide ( - 100) pg/mL Total Protein 6.8 (6.4-8.9) g/dL Albumin 3.7 (3.2-5.2) g/dL Globulin 3.1 (2-4) g/dL Albumin/Globulin Ratio 1.2 (1-3) 02/15/17 02/15/17 Range/Units 21:11 21:11 WBC (3.5-10.8) 10^3/ul RBC (4.0-5.4) 10^6/ul Hgb (12.0-16.0) g/dl Hct (35-47) % MCV (80-97) fL MCH (27-31) pg MCHC (31-36) g/dl RDW (10.5-15) % Plt Count (150-450) 10^3/ul MPV (7.4-10.4) um3 Neut % (Auto) (38-83) % Lymph % (Auto) (25-47) % Crawford % (Auto) (1-9) % Eos % (Auto) (0-6) % Baso % (Auto) (0-2) % Absolute Neuts (auto) (1.5-7.7) 10^3/ul Absolute Lymphs (auto) (1.0-4.8) 10^3/ul Absolute Monos (auto) (0-0.8) 10^3/ul Absolute Eos (auto) (0-0.6) 10^3/ul Absolute Basos (auto) (0-0.2) 10^3/ul Absolute Nucleated RBC 10^3/ul Nucleated RBC % INR (Anticoag Therapy) (0.89-1.11) D-Dimer, Quantitative (Less Than 230) ng/mL Sodium (133-145) mmol/L Potassium (3.5-5.0) mmol/L Chloride (101-111) mmol/L Carbon Dioxide (22-32) mmol/L Anion Gap (2-11) mmol/L BUN (6-24) mg/dL Creatinine (0.51-0.95) mg/dL Est GFR ( Amer) (>60) Est GFR (Non-Af Amer) (>60) BUN/Creatinine Ratio (8-20) Glucose (70-100) mg/dL Lactic Acid 1.4 (0.5-2.0) mmol/L Calcium (8.6-10.3) mg/dL Total Bilirubin (0.2-1.0) mg/dL AST (13-39) U/L ALT (7-52) U/L Alkaline Phosphatase (34-104) U/L Troponin I (<0.04) ng/mL C-Reactive Protein (< 5.00) mg/L B-Natriuretic Peptide 59 ( - 100) pg/mL Total Protein (6.4-8.9) g/dL Albumin (3.2-5.2) g/dL Globulin (2-4) g/dL Albumin/Globulin Ratio (1-3) Microbiology and Other Data: Microbiology 02/16/17 00:30 Nasal Screen MRSA (PCR)([facility]) - Final Nasal Mrsa Negative Assess/Plan/Problems-Billing Assessment: Pt is an 83 y/o F w/ PMH significant for COPD (on home oxygen at 3- 5 L), HTN, hypothyroidism, migraines, chronic back pain who presents to the ER from [facility] with SOB. Diagnosed and treated with pneumonia 2 weeks prior to admission - Patient Problems (1) COPD (chronic obstructive pulmonary disease) Status: Acute Comment: in mild exacerbation. Cont Prednisone PO cont nebs. On her baseline . Recieved Azithromycin in ED. no further tx needed. bibasiliar infiltrates on CXR are likely atelectasis related (2) Chronic pain Comment: Pt takes multiple medications and is followed by Dr. South. cont meds as at home (3) Hypothyroidism Comment: TSH 1.6 in 09/2016. Will cont Synthroid (4) HTN (hypertension) Comment: Uncontrolled. Increasing Amlodipine, for SBP >140 (5) Physical deconditioning Comment: As d/w Dr. Rodriguez pt now uses 2 canes and has problems ambulating getting her treatments as scheduled at [facility]. SW/PT/OT ordered. Would benefit from STR (6) DVT prophylaxis Comment: HSQ (7) TJ (obstructive sleep apnea) Comment: BIPAP at night Status and Disposition: inpatient
[2017-02-16] MEDS: Divalproex ER TAB(*) 500 MG PO SCH (17:42)
[2017-02-16] MEDS: Nystatin SUSPENSION* 100000 UNITS/ML 5 ML UDC PO SCH (23:16)
[2017-02-17] MEDS: Albuterol 2.5 MG/3 ML NEB.SOL* (0.083%) INH SCH ×4 (00:22→18:59)
[2017-02-17] MEDS: Butalb/Acetamin/Caff TAB* 1 TAB PO PRN ×3 (05:28→23:46)
[2017-02-17] MEDS: Levothyroxine TAB* 100 MCG TAB PO SCH (05:29)
[2017-02-17] MEDS: Heparin VIAL(*) 5000 UNITS/ML VIAL (FIVE THOUSAND) SUBCUT SCH ×3 (05:29→21:26)
[2017-02-17] MEDS: fentaNYL Patch Check Q Shift 1 NOTE SCH ×2 (07:27→19:34)
[2017-02-17] MEDS: Tiotropium CAP.INH* CAP.INH/18 MCG INH SCH (07:45)
[2017-02-17] MEDS: Mometasone/Formoter 200/5 MDI INH SCH ×2 (07:45→19:15)
[2017-02-17] MEDS: Nystatin SUSPENSION* 100000 UNITS/ML 5 ML UDC PO SCH ×4 (09:02→21:24)
[2017-02-17] MEDS: Artificial Tears* 15 ML BTL BOTH EYES SCH ×2 (09:03→20:20)
[2017-02-17] MEDS: Fluticasone NASAL SPRAY 50MCG* 16 gm SPRAY BTL BOTH NARES SCH (09:04)
[2017-02-17] MEDS: amLODIPine TAB* 5 MG PO SCH (09:04)
[2017-02-17] MEDS: Multivitamins/Minerals TAB PO SCH (09:05)
[2017-02-17] MEDS: Sertraline* 25 MG TAB PO SCH (09:05)
[2017-02-17] MEDS: Sertraline* 50 MG TAB PO SCH (09:06)
[2017-02-17] MEDS: guaiFENesin ER TAB 600 MG PO SCH ×2 (09:06→20:17)
[2017-02-17] MEDS: Gabapentin CAP(*) 300 MG PO SCH ×3 (09:06→20:17)
[2017-02-17] MEDS: Omeprazole CAP* 20 MG PO SCH (09:07)
[2017-02-17] MEDS: predniSONE TAB* 20 MG PO SCH (09:07)
[2017-02-17] MEDS: Multivitamins/Minera Areds(NF) 1 CAP CAP PO SCH (09:09)
[2017-02-17] MEDS: Docusate CAP* 100 MG PO SCH (09:09)
--- NOTE | 2017-02-17 13:23 | PN ---
Subjective Date of Service: 02/17/17 Interval History: Litle subj change or sl better. Much GTZ, desaturated with exercise. Little cough. Chronic daily headaches and back pain, no change. Objective Active Medications: Acetaminophen/Butalbital/Caffeine (Fioricet Tab*) 1 tab PO BID PRN PRN Reason: MIGRAINE HEADACHE Last Admin: 02/17/17 05:28 Dose: 1 tab Albuterol (Ventolin 2.5 Mg/3 Ml Neb.Chely*) 2.5 mg INH [id number] AWAKE [facility] Last Admin: 02/17/17 07:44 Dose: 2.5 mg Amlodipine Besylate (Norvasc Tab*) 10 mg PO QAM [facility] Last Admin: 02/17/17 09:04 Dose: 10 mg Divalproex Sodium (Depakote Er Tab(*)) 500 mg PO QPM [facility] Last Admin: 02/16/17 17:42 Dose: 500 mg Docusate Sodium (Colace Cap*) 100 mg PO DAILY [facility] Last Admin: 02/17/17 09:09 Dose: 100 mg Fentanyl (Duragesic Patch 75 Mcg/Hr*) 75 mcg TRANSDERM Q72H [facility] Last Admin: 02/16/17 00:30 Dose: 75 mcg Fluticasone Propionate (Flonase Nasal [place] 50mcg*) 1 spray BOTH NARES DAILY [facility] Last Admin: 02/17/17 09:04 Dose: 1 spray Gabapentin (Neurontin Cap(*)) 300 mg PO TID [facility] Last Admin: 02/17/17 09:06 Dose: 300 mg Guaifenesin (Mucinex*) 600 mg PO BID [facility] Last Admin: 02/17/17 09:06 Dose: 600 mg Heparin Sodium (Porcine) (Heparin Vial(*)) 5,000 units SUBCUT Q8HR [facility] Last Admin: 02/17/17 05:29 Dose: 5,000 units Levothyroxine Sodium (Synthroid Tab*) 100 mcg PO DAILY@0600 [facility] Last Admin: 02/17/17 05:29 Dose: 100 mcg Magnesium Hydroxide (Milk Of Magnesia Liq*) 30 ml PO DAILY PRN PRN Reason: CONSTIPATION Mometasone Furoate/Formoterol Fumar (Dulera 200/5 Mdi*) 2 puff INH BID [facility] Last Admin: 02/17/17 07:45 Dose: 2 puff Multivitamins/Minerals (Preservision Areds(Multivitamins/Mineral)(Nf)) 1 cap PO DAILY [facility] Last Admin: 02/17/17 09:09 Dose: Not Given Multivitamins/Minerals (Theragran/Minerals Tab*) 1 tab PO DAILY [facility] Last Admin: 02/17/17 09:05 Dose: 1 tab Nystatin (Nystatin Suspension*) 500,000 units PO QID [facility] Stop: 02/23/17 22:20 Last Admin: 02/17/17 09:02 Dose: 500,000 units Omeprazole (Prilosec Cap*) 20 mg PO DAILY@0730 [facility] Last Admin: 02/17/17 09:07 Dose: 20 mg Oxycodone HCl (Roxycodone Tab*) 15 mg PO Q4H PRN PRN Reason: PAIN Last Admin: 02/16/17 22:07 Dose: 15 mg Pharmacy Profile Note (Fentanyl Patch Check Q Shift) 1 note N/A 0700,1900 [facility] Last Admin: 02/17/17 07:27 Dose: 1 note Polyvinyl Alcohol (Polyvinyl Alcohol 1.4% Opth*) 1 drop BOTH EYES BID [facility] Last Admin: 02/17/17 09:03 Dose: 1 drop Prednisone (Deltasone Tab*) 40 mg PO DAILY WITH MEAL [facility] Last Admin: 02/17/17 09:07 Dose: 40 mg Psyllium Hydrophilic Mucilloid (Metamucil Hang*) 1 pkt PO DAILY PRN PRN Reason: CONSTIPATION Sertraline HCl (Zoloft*) 25 mg PO DAILY [facility] Last Admin: 02/17/17 09:05 Dose: 25 mg Sertraline HCl (Zoloft*) 50 mg PO DAILY [facility] Last Admin: 02/17/17 09:06 Dose: 50 mg Tiotropium [place] (Spiriva Cap.Inh*) 1 cap INH DAILY [facility] Last Admin: 02/17/17 07:45 Dose: 1 cap Vital Signs 02/16/17 02/16/17 02/16/17 14:55 15:18 16:55 Temperature 98.4 F Pulse Rate 76 Respiratory 12 16 14 Rate Blood Pressure 128/53 (mmHg) O2 Sat by Pulse 90 Oximetry 02/16/17 02/16/17 02/16/17 19:48 20:00 21:07 Temperature Pulse Rate 89 Respiratory 18 23 23 Rate Blood Pressure (mmHg) O2 Sat by Pulse 92 Oximetry 02/16/17 02/16/17 02/16/17 21:59 22:07 23:07 Temperature Pulse Rate Respiratory 20 20 20 Rate Blood Pressure (mmHg) O2 Sat by Pulse Oximetry 02/16/17 02/17/17 02/17/17 23:59 00:07 00:24 Temperature 98.0 F Pulse Rate 64 Respiratory 22 22 16 Rate Blood Pressure 120/43 (mmHg) O2 Sat by Pulse 91 Oximetry 02/17/17 02/17/17 02/17/17 03:53 05:28 07:47 Temperature 97.7 F Pulse Rate 58 56 Respiratory 16 20 14 Rate Blood Pressure 138/61 (mmHg) O2 Sat by Pulse 92 95 Oximetry 02/17/17 09:06 Temperature Pulse Rate Respiratory 14 Rate Blood Pressure (mmHg) O2 Sat by Pulse Oximetry Oxygen Devices in Use Now: Nasal Cannula - at 2 L, 02 sat 92% Appearance: Alert, sl up in bed. In fair spirits. Looks comfortable. No cough during my visit. Eyes: No Scleral Icterus Ears/Nose/Mouth/Throat: Clear Oropharnyx, Mucous Membranes Moist Neck: NL Appearance and Movements; NL JVP, No Thyroid Enlargement, Masses Respiratory: Symmetrical Chest Expansion and Respiratory Effort, Clear to Percussion, - - diminished BS BL Cardiovascular: NL Sounds; No Murmurs; No JVD, RRR, No Edema, - Extremities: No Edema, No Clubbing, Cyanosis, - Skin: No Rash or Ulcers, No Nodules or Sclerosis, - Neurological: Alert and Oriented x 3, NL Sensation Result Diagrams: 02/15/17 21:11 02/15/17 21:11 Additional Lab and Data: Lab Results 02/15/17 02/15/17 02/15/17 Range/Units 21:11 21:11 21:11 WBC 7.1 (3.5-10.8) 10^3/ul RBC 3.59 L (4.0-5.4) 10^6/ul Hgb 12.5 (12.0-16.0) g/dl Hct 37 (35-47) % MCV 103 H (80-97) fL MCH 35 H (27-31) pg MCHC 34 (31-36) g/dl RDW 13 (10.5-15) % Plt Count 395 (150-450) 10^3/ul MPV 7 L (7.4-10.4) um3 Neut % (Auto) 71.2 (38-83) % Lymph % (Auto) 14.8 L (25-47) % [place] % (Auto) 11.9 H (1-9) % Eos % (Auto) 1.6 (0-6) % Baso % (Auto) 0.5 (0-2) % Absolute Neuts (auto) 5.0 (1.5-7.7) 10^3/ul Absolute Lymphs (auto) 1.0 (1.0-4.8) 10^3/ul Absolute Monos (auto) 0.8 (0-0.8) 10^3/ul Absolute Eos (auto) 0.1 (0-0.6) 10^3/ul Absolute Basos (auto) 0 (0-0.2) 10^3/ul Absolute Nucleated RBC 0 10^3/ul Nucleated RBC % 0 INR (Anticoag Therapy) 0.87 L (0.89-1.11) D-Dimer, Quantitative < 200 (Less Than 230) ng/mL Sodium 137 (133-145) mmol/L Potassium 4.1 (3.5-5.0) mmol/L Chloride 102 (101-111) mmol/L Carbon Dioxide 32 (22-32) mmol/L Anion Gap 3 (2-11) mmol/L BUN 18 (6-24) mg/dL Creatinine 0.65 (0.51-0.95) mg/dL Est GFR ( Amer) 111.4 (>60) Est GFR (Non-Af Amer) 86.6 (>60) BUN/Creatinine Ratio 27.7 H (8-20) Glucose 124 H (70-100) mg/dL Lactic Acid (0.5-2.0) mmol/L Calcium 9.3 (8.6-10.3) mg/dL Total Bilirubin 0.20 (0.2-1.0) mg/dL AST 14 (13-39) U/L ALT 7 (7-52) U/L Alkaline Phosphatase 80 (34-104) U/L Troponin I 0.03 (<0.04) ng/mL C-Reactive Protein 4.43 (< 5.00) mg/L B-Natriuretic Peptide ( - 100) pg/mL Total Protein 6.8 (6.4-8.9) g/dL Albumin 3.7 (3.2-5.2) g/dL Globulin 3.1 (2-4) g/dL Albumin/Globulin Ratio 1.2 (1-3) 02/15/17 02/15/17 Range/Units 21:11 21:11 WBC (3.5-10.8) 10^3/ul RBC (4.0-5.4) 10^6/ul Hgb (12.0-16.0) g/dl Hct (35-47) % MCV (80-97) fL MCH (27-31) pg MCHC (31-36) g/dl RDW (10.5-15) % Plt Count (150-450) 10^3/ul MPV (7.4-10.4) um3 Neut % (Auto) (38-83) % Lymph % (Auto) (25-47) % [place] % (Auto) (1-9) % Eos % (Auto) (0-6) % Baso % (Auto) (0-2) % Absolute Neuts (auto) (1.5-7.7) 10^3/ul Absolute Lymphs (auto) (1.0-4.8) 10^3/ul Absolute Monos (auto) (0-0.8) 10^3/ul Absolute Eos (auto) (0-0.6) 10^3/ul Absolute Basos (auto) (0-0.2) 10^3/ul Absolute Nucleated RBC 10^3/ul Nucleated RBC % INR (Anticoag Therapy) (0.89-1.11) D-Dimer, Quantitative (Less Than 230) ng/mL Sodium (133-145) mmol/L Potassium (3.5-5.0) mmol/L Chloride (101-111) mmol/L Carbon Dioxide (22-32) mmol/L Anion Gap (2-11) mmol/L BUN (6-24) mg/dL Creatinine (0.51-0.95) mg/dL Est GFR ( Amer) (>60) Est GFR (Non-Af Amer) (>60) BUN/Creatinine Ratio (8-20) Glucose (70-100) mg/dL Lactic Acid 1.4 (0.5-2.0) mmol/L Calcium (8.6-10.3) mg/dL Total Bilirubin (0.2-1.0) mg/dL AST (13-39) U/L ALT (7-52) U/L Alkaline Phosphatase (34-104) U/L Troponin I (<0.04) ng/mL C-Reactive Protein (< 5.00) mg/L B-Natriuretic Peptide 59 ( - 100) pg/mL Total Protein (6.4-8.9) g/dL Albumin (3.2-5.2) g/dL Globulin (2-4) g/dL Albumin/Globulin Ratio (1-3) Microbiology and Other Data: Microbiology 02/16/17 00:30 Nasal Screen MRSA (PCR)(ELA) - Final Nasal Mrsa Negative Assess/Plan/Problems-Billing Assessment: Pt is an 83 y/o F w/ PMH significant for COPD (on home oxygen at 3- 5 L), HTN, hypothyroidism, migraines, chronic back pain who presents to the ER from [facility] with SOB. Diagnosed and treated with pneumonia 2 weeks prior to admission - Patient Problems (1) COPD (chronic obstructive pulmonary disease) Current Visit: No Status: Acute Code(s): J44.9 - CHRONIC OBSTRUCTIVE PULMONARY DISEASE, UNSPECIFIED SNOMED Code(s): 33553396 Comment: in mild exacerbation. Prednisone taper cont nebs. On her baseline 02. Recieved Azithromycin in ED. no further tx needed. bibasiliar infiltrates on CXR are likely atelectasis related. She remains afebrile since admission. (2) Hypothyroidism Current Visit: No Status: Acute Code(s): E03.9 - HYPOTHYROIDISM, UNSPECIFIED SNOMED Code(s): 86166506 Comment: TSH 1.6 in 09/2016. Will cont Synthroid (3) HTN (hypertension) Current Visit: No Status: Acute Code(s): I10 - ESSENTIAL (PRIMARY) HYPERTENSION SNOMED Code(s): 47071041 Comment: Continue increased dose ofr Amlodipine. Status and Disposition: inpatient
[2017-02-17] MEDS: oxyCODONE TAB* 5 MG TAB PO PRN ×2 (15:30→23:46)
[2017-02-17] MEDS: Divalproex ER TAB(*) 500 MG PO SCH (17:59)
[2017-02-18] MEDS: Albuterol 2.5 MG/3 ML NEB.SOL* (0.083%) INH SCH ×4 (01:02→20:25)
[2017-02-18] MEDS: Levothyroxine TAB* 100 MCG TAB PO SCH (05:56)
[2017-02-18] MEDS: oxyCODONE TAB* 5 MG TAB PO PRN ×2 (05:56→22:20)
[2017-02-18] MEDS: Heparin VIAL(*) 5000 UNITS/ML VIAL (FIVE THOUSAND) SUBCUT SCH ×3 (06:01→21:18)
[2017-02-18] MEDS: fentaNYL Patch Check Q Shift 1 NOTE SCH ×2 (06:50→19:16)
[2017-02-18] MEDS: Mometasone/Formoter 200/5 MDI INH SCH ×2 (08:10→20:25)
[2017-02-18] MEDS: Tiotropium CAP.INH* CAP.INH/18 MCG INH SCH (08:10)
[2017-02-18] MEDS: Artificial Tears* 15 ML BTL BOTH EYES SCH ×2 (08:12→22:30)
[2017-02-18] MEDS: Omeprazole CAP* 20 MG PO SCH (08:12)
[2017-02-18] MEDS: Nystatin SUSPENSION* 100000 UNITS/ML 5 ML UDC PO SCH ×4 (08:12→21:17)
[2017-02-18] MEDS: Sertraline* 25 MG TAB PO SCH (08:12)
[2017-02-18] MEDS: Docusate CAP* 100 MG PO SCH (08:12)
[2017-02-18] MEDS: Sertraline* 50 MG TAB PO SCH (08:12)
[2017-02-18] MEDS: Fluticasone NASAL SPRAY 50MCG* 16 gm SPRAY BTL BOTH NARES SCH (08:12)
[2017-02-18] MEDS: amLODIPine TAB* 5 MG PO SCH (08:13)
[2017-02-18] MEDS: Multivitamins/Minerals TAB PO SCH (08:13)
[2017-02-18] MEDS: guaiFENesin ER TAB 600 MG PO SCH ×2 (08:13→21:16)
[2017-02-18] MEDS: predniSONE TAB* 20 MG PO SCH (08:13)
[2017-02-18] MEDS: Gabapentin CAP(*) 300 MG PO SCH ×3 (08:13→21:17)
[2017-02-18] MEDS: Multivitamins/Minera Areds(NF) 1 CAP CAP PO SCH (08:15)
[2017-02-18] MEDS: Butalb/Acetamin/Caff TAB* 1 TAB PO PRN ×2 (09:08→15:38)
[2017-02-18] MEDS ORDERED: predniSONE TAB* 10 MG PO SCH (11:34)
--- NOTE | 2017-02-18 12:04 | PN ---
Subjective Date of Service: 02/18/17 Interval History: No subj change. Objective Active Medications: Acetaminophen/Butalbital/Caffeine (Fioricet Tab*) 1 tab PO BID PRN PRN Reason: MIGRAINE HEADACHE Last Admin: 02/18/17 09:08 Dose: 1 tab Albuterol (Ventolin 2.5 Mg/3 Ml Neb.Chely*) 2.5 mg INH [id number] AWAKE [facility] Last Admin: 02/18/17 08:06 Dose: 2.5 mg Amlodipine Besylate (Norvasc Tab*) 10 mg PO QAM [facility] Last Admin: 02/18/17 08:13 Dose: 10 mg Divalproex Sodium (Depakote Er Tab(*)) 500 mg PO QPM [facility] Last Admin: 02/17/17 17:59 Dose: 500 mg Docusate Sodium (Colace Cap*) 100 mg PO DAILY [facility] Last Admin: 02/18/17 08:12 Dose: 100 mg Fentanyl (Duragesic Patch 75 Mcg/Hr*) 75 mcg TRANSDERM Q72H [facility] Last Admin: 02/16/17 00:30 Dose: 75 mcg Fluticasone Propionate (Flonase Nasal [place] 50mcg*) 1 spray BOTH NARES DAILY [facility] Last Admin: 02/18/17 08:12 Dose: 1 spray Gabapentin (Neurontin Cap(*)) 300 mg PO TID [facility] Last Admin: 02/18/17 08:13 Dose: 300 mg Guaifenesin (Mucinex*) 600 mg PO BID [facility] Last Admin: 02/18/17 08:13 Dose: 600 mg Heparin Sodium (Porcine) (Heparin Vial(*)) 5,000 units SUBCUT Q8HR [facility] Last Admin: 02/18/17 06:01 Dose: 5,000 units Levothyroxine Sodium (Synthroid Tab*) 100 mcg PO DAILY@0600 [facility] Last Admin: 02/18/17 05:56 Dose: 100 mcg Magnesium Hydroxide (Milk Of Magnesia Liq*) 30 ml PO DAILY PRN PRN Reason: CONSTIPATION Mometasone Furoate/Formoterol Fumar (Dulera 200/5 Mdi*) 2 puff INH BID [facility] Last Admin: 02/18/17 08:10 Dose: 2 puff Multivitamins/Minerals (Theragran/Minerals Tab*) 1 tab PO DAILY [facility] Last Admin: 02/18/17 08:13 Dose: 1 tab Nystatin (Nystatin Suspension*) 500,000 units PO QID [facility] Stop: 02/23/17 22:20 Last Admin: 02/18/17 08:12 Dose: 500,000 units Omeprazole (Prilosec Cap*) 20 mg PO DAILY@0730 [facility] Last Admin: 02/18/17 08:12 Dose: 20 mg Oxycodone HCl (Roxycodone Tab*) 15 mg PO Q4H PRN PRN Reason: PAIN Last Admin: 02/18/17 05:56 Dose: 15 mg Pharmacy Profile Note (Fentanyl Patch Check Q Shift) 1 note N/A 0700,1900 [facility] Last Admin: 02/18/17 06:50 Dose: 1 note Polyvinyl Alcohol (Polyvinyl Alcohol 1.4% Opth*) 1 drop BOTH EYES BID [facility] Last Admin: 02/18/17 08:12 Dose: 1 drop Prednisone (Deltasone Tab*) 30 mg PO DAILY WITH MEAL [facility] Psyllium Hydrophilic Mucilloid (Metamucil Hang*) 1 pkt PO DAILY PRN PRN Reason: CONSTIPATION Sertraline HCl (Zoloft*) 25 mg PO DAILY [facility] Last Admin: 02/18/17 08:12 Dose: 25 mg Sertraline HCl (Zoloft*) 50 mg PO DAILY [facility] Last Admin: 02/18/17 08:12 Dose: 50 mg Tiotropium [place] (Spiriva Cap.Inh*) 1 cap INH DAILY [facility] Last Admin: 02/18/17 08:10 Dose: 1 cap Vital Signs 02/17/17 02/17/17 02/17/17 13:41 15:12 15:29 Temperature Pulse Rate 62 88 Respiratory 18 20 Rate Blood Pressure (mmHg) O2 Sat by Pulse 92 92 Oximetry 02/17/17 02/17/17 02/17/17 15:30 17:29 17:30 Temperature Pulse Rate Respiratory 20 14 20 Rate Blood Pressure (mmHg) O2 Sat by Pulse Oximetry 02/17/17 02/17/17 02/17/17 19:18 19:35 20:00 Temperature 98.3 F Pulse Rate 74 73 Respiratory 18 20 18 Rate Blood Pressure 140/56 (mmHg) O2 Sat by Pulse 95 94 Oximetry 02/17/17 02/17/17 02/17/17 20:17 22:17 23:46 Temperature Pulse Rate Respiratory 18 20 19 Rate Blood Pressure (mmHg) O2 Sat by Pulse Oximetry 02/17/17 02/18/17 02/18/17 23:48 05:13 05:56 Temperature 98.5 F 97.4 F Pulse Rate 72 62 Respiratory 16 16 20 Rate Blood Pressure 128/46 123/58 (mmHg) O2 Sat by Pulse 98 96 Oximetry 02/18/17 02/18/17 02/18/17 07:32 08:00 08:10 Temperature 98.1 F Pulse Rate 57 64 Respiratory 20 16 Rate Blood Pressure 132/69 (mmHg) O2 Sat by Pulse 95 98 Oximetry 02/18/17 02/18/17 02/18/17 08:13 09:08 10:41 Temperature Pulse Rate Respiratory 16 14 16 Rate Blood Pressure (mmHg) O2 Sat by Pulse Oximetry Oxygen Devices in Use Now: Nasal Cannula - at 2 L, 02 sat 92% Appearance: Alert, partly up in bed. In fair spirits. Looks comfortable. Respiratory: Symmetrical Chest Expansion and Respiratory Effort, Clear to Auscultation, Clear to Percussion Cardiovascular: No Edema, - - irreg Extremities: No Edema, No Clubbing, Cyanosis, - Skin: No Rash or Ulcers, No Nodules or Sclerosis, - Neurological: Alert and Oriented x 3, NL Sensation Result Diagrams: 02/15/17 21:11 02/15/17 21:11 Additional Lab and Data: Lab Results 02/15/17 02/15/17 02/15/17 Range/Units 21:11 21:11 21:11 WBC 7.1 (3.5-10.8) 10^3/ul RBC 3.59 L (4.0-5.4) 10^6/ul Hgb 12.5 (12.0-16.0) g/dl Hct 37 (35-47) % MCV 103 H (80-97) fL MCH 35 H (27-31) pg MCHC 34 (31-36) g/dl RDW 13 (10.5-15) % Plt Count 395 (150-450) 10^3/ul MPV 7 L (7.4-10.4) um3 Neut % (Auto) 71.2 (38-83) % Lymph % (Auto) 14.8 L (25-47) % [place] % (Auto) 11.9 H (1-9) % Eos % (Auto) 1.6 (0-6) % Baso % (Auto) 0.5 (0-2) % Absolute Neuts (auto) 5.0 (1.5-7.7) 10^3/ul Absolute Lymphs (auto) 1.0 (1.0-4.8) 10^3/ul Absolute Monos (auto) 0.8 (0-0.8) 10^3/ul Absolute Eos (auto) 0.1 (0-0.6) 10^3/ul Absolute Basos (auto) 0 (0-0.2) 10^3/ul Absolute Nucleated RBC 0 10^3/ul Nucleated RBC % 0 INR (Anticoag Therapy) 0.87 L (0.89-1.11) D-Dimer, Quantitative < 200 (Less Than 230) ng/mL Sodium 137 (133-145) mmol/L Potassium 4.1 (3.5-5.0) mmol/L Chloride 102 (101-111) mmol/L Carbon Dioxide 32 (22-32) mmol/L Anion Gap 3 (2-11) mmol/L BUN 18 (6-24) mg/dL Creatinine 0.65 (0.51-0.95) mg/dL Est GFR ( Amer) 111.4 (>60) Est GFR (Non-Af Amer) 86.6 (>60) BUN/Creatinine Ratio 27.7 H (8-20) Glucose 124 H (70-100) mg/dL Lactic Acid (0.5-2.0) mmol/L Calcium 9.3 (8.6-10.3) mg/dL Total Bilirubin 0.20 (0.2-1.0) mg/dL AST 14 (13-39) U/L ALT 7 (7-52) U/L Alkaline Phosphatase 80 (34-104) U/L Troponin I 0.03 (<0.04) ng/mL C-Reactive Protein 4.43 (< 5.00) mg/L B-Natriuretic Peptide ( - 100) pg/mL Total Protein 6.8 (6.4-8.9) g/dL Albumin 3.7 (3.2-5.2) g/dL Globulin 3.1 (2-4) g/dL Albumin/Globulin Ratio 1.2 (1-3) 02/15/17 02/15/17 Range/Units 21:11 21:11 WBC (3.5-10.8) 10^3/ul RBC (4.0-5.4) 10^6/ul Hgb (12.0-16.0) g/dl Hct (35-47) % MCV (80-97) fL MCH (27-31) pg MCHC (31-36) g/dl RDW (10.5-15) % Plt Count (150-450) 10^3/ul MPV (7.4-10.4) um3 Neut % (Auto) (38-83) % Lymph % (Auto) (25-47) % [place] % (Auto) (1-9) % Eos % (Auto) (0-6) % Baso % (Auto) (0-2) % Absolute Neuts (auto) (1.5-7.7) 10^3/ul Absolute Lymphs (auto) (1.0-4.8) 10^3/ul Absolute Monos (auto) (0-0.8) 10^3/ul Absolute Eos (auto) (0-0.6) 10^3/ul Absolute Basos (auto) (0-0.2) 10^3/ul Absolute Nucleated RBC 10^3/ul Nucleated RBC % INR (Anticoag Therapy) (0.89-1.11) D-Dimer, Quantitative (Less Than 230) ng/mL Sodium (133-145) mmol/L Potassium (3.5-5.0) mmol/L Chloride (101-111) mmol/L Carbon Dioxide (22-32) mmol/L Anion Gap (2-11) mmol/L BUN (6-24) mg/dL Creatinine (0.51-0.95) mg/dL Est GFR ( Amer) (>60) Est GFR (Non-Af Amer) (>60) BUN/Creatinine Ratio (8-20) Glucose (70-100) mg/dL Lactic Acid 1.4 (0.5-2.0) mmol/L Calcium (8.6-10.3) mg/dL Total Bilirubin (0.2-1.0) mg/dL AST (13-39) U/L ALT (7-52) U/L Alkaline Phosphatase (34-104) U/L Troponin I (<0.04) ng/mL C-Reactive Protein (< 5.00) mg/L B-Natriuretic Peptide 59 ( - 100) pg/mL Total Protein (6.4-8.9) g/dL Albumin (3.2-5.2) g/dL Globulin (2-4) g/dL Albumin/Globulin Ratio (1-3) Microbiology and Other Data: Microbiology 02/16/17 00:30 Nasal Screen MRSA (PCR)(ELA) - Final Nasal Mrsa Negative Assess/Plan/Problems-Billing Assessment: Pt is an 83 y/o F w/ PMH significant for COPD (on home oxygen at 3- 5 L), HTN, hypothyroidism, migraines, chronic back pain who presents to the ER from [facility] with SOB. Diagnosed and treated with pneumonia 2 weeks prior to admission - Patient Problems (1) COPD (chronic obstructive pulmonary disease) Current Visit: No Status: Acute Code(s): J44.9 - CHRONIC OBSTRUCTIVE PULMONARY DISEASE, UNSPECIFIED SNOMED Code(s): 99515109 Comment: in mild exacerbation. Prednisone taper cont nebs. On her baseline 02. Recieved Azithromycin in ED. no further tx needed. bibasiliar infiltrates on CXR are likely atelectasis related. She remains afebrile since admission. (2) Hypothyroidism Current Visit: No Status: Acute Code(s): E03.9 - HYPOTHYROIDISM, UNSPECIFIED SNOMED Code(s): 85046504 Comment: TSH 1.6 in 09/2016. Continue home dose levothyroxine. (3) HTN (hypertension) Current Visit: No Status: Acute Code(s): I10 - ESSENTIAL (PRIMARY) HYPERTENSION SNOMED Code(s): 42688314 Comment: Continue increased dose of Amlodipine. Status and Disposition: inpatient
[2017-02-18] MEDS: Divalproex ER TAB(*) 500 MG PO SCH (19:18)
[2017-02-18] MEDS: fentaNYL PATCH 75 MCG/HR* 75 MCG TRANSDERM SCH (21:19)
[2017-02-19] MEDS: Butalb/Acetamin/Caff TAB* 1 TAB PO PRN ×2 (00:35→21:48)
[2017-02-19] MEDS: Albuterol 2.5 MG/3 ML NEB.SOL* (0.083%) INH SCH ×2 (01:59→09:05)
[2017-02-19] MEDS: fentaNYL Patch Check Q Shift 1 NOTE SCH (07:08)
[2017-02-19] MEDS: Heparin VIAL(*) 5000 UNITS/ML VIAL (FIVE THOUSAND) SUBCUT SCH ×3 (07:10→20:28)
[2017-02-19] MEDS: Levothyroxine TAB* 100 MCG TAB PO SCH (07:10)
[2017-02-19] MEDS: oxyCODONE TAB* 5 MG TAB PO PRN (08:09)
[2017-02-19] MEDS: amLODIPine TAB* 5 MG PO SCH (08:10)
[2017-02-19] MEDS: guaiFENesin ER TAB 600 MG PO SCH ×2 (08:11→20:29)
[2017-02-19] MEDS: Sertraline* 25 MG TAB PO SCH (08:11)
[2017-02-19] MEDS: Sertraline* 50 MG TAB PO SCH (08:11)
[2017-02-19] MEDS: Docusate CAP* 100 MG PO SCH (08:12)
[2017-02-19] MEDS: Multivitamins/Minerals TAB PO SCH (08:12)
[2017-02-19] MEDS: Omeprazole CAP* 20 MG PO SCH (08:12)
[2017-02-19] MEDS: Nystatin SUSPENSION* 100000 UNITS/ML 5 ML UDC PO SCH ×4 (08:15→20:33)
[2017-02-19] MEDS: Fluticasone NASAL SPRAY 50MCG* 16 gm SPRAY BTL BOTH NARES SCH (08:15)
[2017-02-19] MEDS: Artificial Tears* 15 ML BTL BOTH EYES SCH ×2 (08:15→20:33)
[2017-02-19] MEDS: Gabapentin CAP(*) 300 MG PO SCH ×3 (08:17→20:29)
[2017-02-19] MEDS: Tiotropium CAP.INH* CAP.INH/18 MCG INH SCH (09:05)
[2017-02-19] MEDS: Mometasone/Formoter 200/5 MDI INH SCH ×2 (09:05→19:51)
[2017-02-19] MEDS: Morphine ORAL.SOLN 10 mg* 2 MG/ML UDC 5 ml PO PRN ×7 (09:29→22:35)
[2017-02-19] MEDS ORDERED: Albuterol 2.5 MG/3 ML NEB.SOL* (0.083%) INH PRN (11:03)
--- NOTE | 2017-02-19 11:47 | PN ---
Subjective Date of Service: 02/19/17 Interval History: Headache this AM, better after oral morphine solution. No new c/o. Objective Active Medications: Acetaminophen/Butalbital/Caffeine (Fioricet Tab*) 1 tab PO BID PRN PRN Reason: MIGRAINE HEADACHE Last Admin: 02/19/17 00:35 Dose: 1 tab Albuterol (Ventolin 2.5 Mg/3 Ml Neb.Chely*) 2.5 mg INH Q4H PRN PRN Reason: DYSPNEA Amlodipine Besylate (Norvasc Tab*) 5 mg PO QAM [facility] Divalproex Sodium (Depakote Er Tab(*)) 500 mg PO QPM [facility] Last Admin: 02/18/17 19:18 Dose: 500 mg Docusate Sodium (Colace Cap*) 100 mg PO DAILY [facility] Last Admin: 02/19/17 08:12 Dose: 100 mg Fentanyl (Duragesic Patch 75 Mcg/Hr*) 75 mcg TRANSDERM Q72H [facility] Last Admin: 02/18/17 21:19 Dose: 75 mcg Fluticasone Propionate (Flonase Nasal [place] 50mcg*) 1 spray BOTH NARES DAILY [facility] Last Admin: 02/19/17 08:15 Dose: 1 spray Gabapentin (Neurontin Cap(*)) 300 mg PO TID [facility] Last Admin: 02/19/17 08:17 Dose: 300 mg Guaifenesin (Mucinex*) 600 mg PO BID [facility] Last Admin: 02/19/17 08:11 Dose: 600 mg Heparin Sodium (Porcine) (Heparin Vial(*)) 5,000 units SUBCUT Q8HR [facility] Last Admin: 02/19/17 07:10 Dose: 5,000 units Levothyroxine Sodium (Synthroid Tab*) 100 mcg PO DAILY@0600 [facility] Last Admin: 02/19/17 07:10 Dose: 100 mcg Magnesium Hydroxide (Milk Of Magnesia Liq*) 30 ml PO DAILY PRN PRN Reason: CONSTIPATION Mometasone Furoate/Formoterol Fumar (Dulera 200/5 Mdi*) 2 puff INH BID [facility] Last Admin: 02/19/17 09:05 Dose: 2 puff Morphine Sulfate (Morphine Oral.Soln 10 Mg*) 10 mg PO Q2H PRN PRN Reason: PAIN Last Admin: 02/19/17 09:29 Dose: 10 mg Multivitamins/Minerals (Theragran/Minerals Tab*) 1 tab PO DAILY [facility] Last Admin: 02/19/17 08:12 Dose: 1 tab Nystatin (Nystatin Suspension*) 500,000 units PO QID [facility] Stop: 02/23/17 22:20 Last Admin: 02/19/17 08:15 Dose: 500,000 units Omeprazole (Prilosec Cap*) 20 mg PO DAILY@0730 [facility] Last Admin: 02/19/17 08:12 Dose: 20 mg Oxycodone HCl (Roxycodone Tab*) 15 mg PO Q4H PRN PRN Reason: PAIN Last Admin: 02/19/17 08:09 Dose: 15 mg Pharmacy Profile Note (Fentanyl Patch Check Q Shift) 1 note N/A 0700,1900 [facility] Last Admin: 02/19/17 07:08 Dose: 1 note Polyvinyl Alcohol (Polyvinyl Alcohol 1.4% Opth*) 1 drop BOTH EYES BID [facility] Last Admin: 02/19/17 08:15 Dose: 1 drop Prednisone (Deltasone Tab*) 20 mg PO DAILY WITH MEAL [facility] Psyllium Hydrophilic Mucilloid (Metamucil Hang*) 1 pkt PO DAILY PRN PRN Reason: CONSTIPATION Sertraline HCl (Zoloft*) 25 mg PO DAILY [facility] Last Admin: 02/19/17 08:11 Dose: 25 mg Sertraline HCl (Zoloft*) 50 mg PO DAILY [facility] Last Admin: 02/19/17 08:11 Dose: 50 mg Tiotropium [place] (Spiriva Cap.Inh*) 1 cap INH DAILY [facility] Last Admin: 02/19/17 09:05 Dose: 1 cap Vital Signs 02/18/17 02/18/17 02/18/17 15:32 15:38 16:19 Temperature 98.8 F Pulse Rate 36 Respiratory 16 18 22 Rate Blood Pressure 137/58 (mmHg) O2 Sat by Pulse 96 Oximetry 02/18/17 02/18/17 02/18/17 17:32 20:00 20:08 Temperature 98.3 F Pulse Rate 61 Respiratory 14 20 18 Rate Blood Pressure 140/65 (mmHg) O2 Sat by Pulse 94 Oximetry 02/18/17 02/18/17 02/18/17 20:28 21:17 22:20 Temperature Pulse Rate 65 Respiratory 16 20 16 Rate Blood Pressure (mmHg) O2 Sat by Pulse 96 Oximetry 02/18/17 02/18/17 02/19/17 23:17 23:20 00:20 Temperature 98.2 F Pulse Rate 66 Respiratory 16 20 16 Rate Blood Pressure 131/62 (mmHg) O2 Sat by Pulse 92 Oximetry 02/19/17 02/19/17 02/19/17 00:35 02:35 03:59 Temperature 97.5 F Pulse Rate 60 Respiratory 20 16 16 Rate Blood Pressure 130/71 (mmHg) O2 Sat by Pulse 93 Oximetry 02/19/17 02/19/17 02/19/17 08:09 08:15 08:17 Temperature 98.3 F Pulse Rate 51 Respiratory 18 18 18 Rate Blood Pressure 126/60 (mmHg) O2 Sat by Pulse 98 Oximetry 02/19/17 02/19/17 02/19/17 09:09 09:11 09:29 Temperature 98.3 F Pulse Rate 59 51 Respiratory 14 18 14 Rate Blood Pressure 126/60 (mmHg) O2 Sat by Pulse 95 98 Oximetry 02/19/17 10:09 Temperature Pulse Rate Respiratory 14 Rate Blood Pressure (mmHg) O2 Sat by Pulse Oximetry Oxygen Devices in Use Now: Nasal Cannula - at 2 L, 02 sat 92% Appearance: Alert, partly up in bed. In good spirits. Looks comfortable. Eyes: No Scleral Icterus Neck: NL Appearance and Movements; NL JVP, No Thyroid Enlargement, Masses Respiratory: Symmetrical Chest Expansion and Respiratory Effort, Clear to Auscultation, Clear to Percussion Cardiovascular: NL Sounds; No Murmurs; No JVD, No Edema, - - irreg Extremities: No Edema, No Clubbing, Cyanosis, - Skin: No Rash or Ulcers, No Nodules or Sclerosis, - Neurological: Alert and Oriented x 3, NL Sensation Result Diagrams: 02/15/17 21:11 02/15/17 21:11 Additional Lab and Data: Lab Results 02/15/17 02/15/17 02/15/17 Range/Units 21:11 21:11 21:11 WBC 7.1 (3.5-10.8) 10^3/ul RBC 3.59 L (4.0-5.4) 10^6/ul Hgb 12.5 (12.0-16.0) g/dl Hct 37 (35-47) % MCV 103 H (80-97) fL MCH 35 H (27-31) pg MCHC 34 (31-36) g/dl RDW 13 (10.5-15) % Plt Count 395 (150-450) 10^3/ul MPV 7 L (7.4-10.4) um3 Neut % (Auto) 71.2 (38-83) % Lymph % (Auto) 14.8 L (25-47) % [place] % (Auto) 11.9 H (1-9) % Eos % (Auto) 1.6 (0-6) % Baso % (Auto) 0.5 (0-2) % Absolute Neuts (auto) 5.0 (1.5-7.7) 10^3/ul Absolute Lymphs (auto) 1.0 (1.0-4.8) 10^3/ul Absolute Monos (auto) 0.8 (0-0.8) 10^3/ul Absolute Eos (auto) 0.1 (0-0.6) 10^3/ul Absolute Basos (auto) 0 (0-0.2) 10^3/ul Absolute Nucleated RBC 0 10^3/ul Nucleated RBC % 0 INR (Anticoag Therapy) 0.87 L (0.89-1.11) D-Dimer, Quantitative < 200 (Less Than 230) ng/mL Sodium 137 (133-145) mmol/L Potassium 4.1 (3.5-5.0) mmol/L Chloride 102 (101-111) mmol/L Carbon Dioxide 32 (22-32) mmol/L Anion Gap 3 (2-11) mmol/L BUN 18 (6-24) mg/dL Creatinine 0.65 (0.51-0.95) mg/dL Est GFR ( Amer) 111.4 (>60) Est GFR (Non-Af Amer) 86.6 (>60) BUN/Creatinine Ratio 27.7 H (8-20) Glucose 124 H (70-100) mg/dL Lactic Acid (0.5-2.0) mmol/L Calcium 9.3 (8.6-10.3) mg/dL Total Bilirubin 0.20 (0.2-1.0) mg/dL AST 14 (13-39) U/L ALT 7 (7-52) U/L Alkaline Phosphatase 80 (34-104) U/L Troponin I 0.03 (<0.04) ng/mL C-Reactive Protein 4.43 (< 5.00) mg/L B-Natriuretic Peptide ( - 100) pg/mL Total Protein 6.8 (6.4-8.9) g/dL Albumin 3.7 (3.2-5.2) g/dL Globulin 3.1 (2-4) g/dL Albumin/Globulin Ratio 1.2 (1-3) 02/15/17 02/15/17 Range/Units 21:11 21:11 WBC (3.5-10.8) 10^3/ul RBC (4.0-5.4) 10^6/ul Hgb (12.0-16.0) g/dl Hct (35-47) % MCV (80-97) fL MCH (27-31) pg MCHC (31-36) g/dl RDW (10.5-15) % Plt Count (150-450) 10^3/ul MPV (7.4-10.4) um3 Neut % (Auto) (38-83) % Lymph % (Auto) (25-47) % [place] % (Auto) (1-9) % Eos % (Auto) (0-6) % Baso % (Auto) (0-2) % Absolute Neuts (auto) (1.5-7.7) 10^3/ul Absolute Lymphs (auto) (1.0-4.8) 10^3/ul Absolute Monos (auto) (0-0.8) 10^3/ul Absolute Eos (auto) (0-0.6) 10^3/ul Absolute Basos (auto) (0-0.2) 10^3/ul Absolute Nucleated RBC 10^3/ul Nucleated RBC % INR (Anticoag Therapy) (0.89-1.11) D-Dimer, Quantitative (Less Than 230) ng/mL Sodium (133-145) mmol/L Potassium (3.5-5.0) mmol/L Chloride (101-111) mmol/L Carbon Dioxide (22-32) mmol/L Anion Gap (2-11) mmol/L BUN (6-24) mg/dL Creatinine (0.51-0.95) mg/dL Est GFR ( Amer) (>60) Est GFR (Non-Af Amer) (>60) BUN/Creatinine Ratio (8-20) Glucose (70-100) mg/dL Lactic Acid 1.4 (0.5-2.0) mmol/L Calcium (8.6-10.3) mg/dL Total Bilirubin (0.2-1.0) mg/dL AST (13-39) U/L ALT (7-52) U/L Alkaline Phosphatase (34-104) U/L Troponin I (<0.04) ng/mL C-Reactive Protein (< 5.00) mg/L B-Natriuretic Peptide 59 ( - 100) pg/mL Total Protein (6.4-8.9) g/dL Albumin (3.2-5.2) g/dL Globulin (2-4) g/dL Albumin/Globulin Ratio (1-3) Microbiology and Other Data: Microbiology 02/16/17 00:30 Nasal Screen MRSA (PCR)([facility]) - Final Nasal Mrsa Negative Assess/Plan/Problems-Billing Assessment: Pt is an 83 y/o F w/ PMH significant for COPD (on home oxygen at 3- 5 L), HTN, hypothyroidism, migraines, chronic back pain who presents to the ER from [facility] with SOB. Diagnosed and treated with pneumonia 2 weeks prior to admission - Patient Problems (1) COPD (chronic obstructive pulmonary disease) Current Visit: No Status: Acute Code(s): J44.9 - CHRONIC OBSTRUCTIVE PULMONARY DISEASE, UNSPECIFIED SNOMED Code(s): 62506952 Comment: Continue prednisone taper Stable. Recieved Azithromycin in ED. no further tx needed. bibasiliar infiltrates on CXR are likely atelectasis related. She remains afebrile since admission. Palliative Care consult entered at family's request. (2) Hypothyroidism Current Visit: No Status: Acute Code(s): E03.9 - HYPOTHYROIDISM, UNSPECIFIED SNOMED Code(s): 38439796 Comment: TSH 1.6 in 09/2016. Continue home dose levothyroxine. (3) HTN (hypertension) Current Visit: No Status: Acute Code(s): I10 - ESSENTIAL (PRIMARY) HYPERTENSION SNOMED Code(s): 67741176 Comment: Resume home dose of Amlodipine. (4) Chronic pain Current Visit: No Status: Acute Code(s): G89.29 - OTHER CHRONIC PAIN SNOMED Code(s): 59087348 Comment: Oral morphine solution helped her pain. Status and Disposition: inpatient
--- NOTE | 2017-02-19 15:08 | CONSULT ---
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 She and her daughter are interested in hospice services to allow her to remain in her current home at [facility] without having to return to the hospital when her O2 requirement goes up. She was previously using 3 L O2 at rest and 4 L O2 when walking, but lately has required 4L at rest and 6L when walking. Her compressor can only deliver 5 L O2 at a time. Apparently [facility] can not allow O2 tanks in the room at present. She has been getting her pulmonary care at [place], and her last PFTs were done there. 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 Her daughter is requesting that Dr. Thomas be contacted to arrange another sleep study to evaluate her current JT status and treatment. Lab Values: Laboratory Last Values WBC 7.1 10^3/ul (3.5-10.8) 02/15/17 21:11 RBC 3.59 10^6/ul (4.0-5.4) L 02/15/17 21:11 Hgb 12.5 g/dl (12.0-16.0) 02/15/17 21:11 Hct 37 % (35-47) 02/15/17 21:11 MCV 103 fL (80-97) H 02/15/17 21:11 MCH 35 pg (27-31) H 02/15/17 21:11 MCHC 34 g/dl (31-36) 02/15/17 21:11 RDW 13 % (10.5-15) 02/15/17 21:11 Plt Count 395 10^3/ul (150-450) 02/15/17 21:11 MPV 7 um3 (7.4-10.4) L 02/15/17 21:11 Neut % (Auto) 71.2 % (38-83) 02/15/17 21:11 Lymph % (Auto) 14.8 % (25-47) L 02/15/17 21:11 [place] % (Auto) 11.9 % (1-9) H 02/15/17 21:11 Eos % (Auto) 1.6 % (0-6) 02/15/17 21:11 Baso % (Auto) 0.5 % (0-2) 02/15/17 21:11 Absolute Neuts (auto) 5.0 10^3/ul (1.5-7.7) 02/15/17 21:11 Absolute Lymphs (auto) 1.0 10^3/ul (1.0-4.8) 02/15/17 21:11 Absolute Monos (auto) 0.8 10^3/ul (0-0.8) 02/15/17 21:11 Absolute Eos (auto) 0.1 10^3/ul (0-0.6) 02/15/17 21:11 Absolute Basos (auto) 0 10^3/ul (0-0.2) 02/15/17 21:11 Absolute Nucleated RBC 0 10^3/ul 02/15/17 21:11 Nucleated RBC % 0 02/15/17 21:11 INR (Anticoag Therapy) 0.87 (0.89-1.11) L 02/15/17 21:11 D-Dimer, Quantitative < 200 ng/mL (Less Than 230) 02/15/17 21:11 Sodium 137 mmol/L (133-145) 02/15/17 21:11 Potassium 4.1 mmol/L (3.5-5.0) 02/15/17 21:11 Chloride 102 mmol/L (101-111) 02/15/17 21:11 Carbon Dioxide 32 mmol/L (22-32) 02/15/17 21:11 Anion Gap 3 mmol/L (2-11) 02/15/17 21:11 BUN 18 mg/dL (6-24) 02/15/17 21:11 Creatinine 0.65 mg/dL (0.51-0.95) 02/15/17 21:11 Est GFR ( Amer) 111.4 (>60) 02/15/17 21:11 Est GFR (Non-Af Amer) 86.6 (>60) 02/15/17 21:11 BUN/Creatinine Ratio 27.7 (8-20) H 02/15/17 21:11 Glucose 124 mg/dL (70-100) H 02/15/17 21:11 Lactic Acid 1.4 mmol/L (0.5-2.0) 02/15/17 21:11 Calcium 9.3 mg/dL (8.6-10.3) 02/15/17 21:11 Total Bilirubin 0.20 mg/dL (0.2-1.0) 02/15/17 21:11 AST 14 U/L (13-39) 02/15/17 21:11 ALT 7 U/L (7-52) 02/15/17 21:11 Alkaline Phosphatase 80 U/L (34-104) 02/15/17 21:11 Troponin I 0.03 ng/mL (<0.04) 02/15/17 21:11 C-Reactive Protein 4.43 mg/L (< 5.00) 02/15/17 21:11 B-Natriuretic Peptide 59 pg/mL (-100) 02/15/17 21:11 Total Protein 6.8 g/dL (6.4-8.9) 02/15/17 21:11 Albumin 3.7 g/dL (3.2-5.2) 02/15/17 21:11 Globulin 3.1 g/dL (2-4) 02/15/17 21:11 Albumin/Globulin Ratio 1.2 (1-3) 02/15/17 21:11 - Objective Active Medications: Acetaminophen/Butalbital/Caffeine (Fioricet Tab*) 1 tab PO BID PRN PRN Reason: MIGRAINE HEADACHE Last Admin: 02/19/17 00:35 Dose: 1 tab Albuterol (Ventolin 2.5 Mg/3 Ml Neb.Chely*) 2.5 mg INH Q4H PRN PRN Reason: DYSPNEA Amlodipine Besylate (Norvasc Tab*) 5 mg PO QAM [facility] Divalproex Sodium (Depakote Er Tab(*)) 500 mg PO QPM [facility] Last Admin: 02/18/17 19:18 Dose: 500 mg Docusate Sodium (Colace Cap*) 100 mg PO DAILY [facility] Last Admin: 02/19/17 08:12 Dose: 100 mg Fentanyl (Duragesic Patch 75 Mcg/Hr*) 75 mcg TRANSDERM Q72H [facility] Last Admin: 02/18/17 21:19 Dose: 75 mcg Fluticasone Propionate (Flonase Nasal [place] 50mcg*) 1 spray BOTH NARES DAILY [facility] Last Admin: 02/19/17 08:15 Dose: 1 spray Gabapentin (Neurontin Cap(*)) 300 mg PO TID [facility] Last Admin: 02/19/17 13:40 Dose: 300 mg Guaifenesin (Mucinex*) 600 mg PO BID [facility] Last Admin: 02/19/17 08:11 Dose: 600 mg Heparin Sodium (Porcine) (Heparin Vial(*)) 5,000 units SUBCUT Q8HR [facility] Last Admin: 02/19/17 13:40 Dose: 5,000 units Levothyroxine Sodium (Synthroid Tab*) 100 mcg PO DAILY@0600 [facility] Last Admin: 02/19/17 07:10 Dose: 100 mcg Magnesium Hydroxide (Milk Of Magnesia Liq*) 30 ml PO DAILY PRN PRN Reason: CONSTIPATION Mometasone Furoate/Formoterol Fumar (Dulera 200/5 Mdi*) 2 puff INH BID [facility] Last Admin: 02/19/17 09:05 Dose: 2 puff Morphine Sulfate (Morphine Oral.Soln 10 Mg*) 10 mg PO Q2H PRN PRN Reason: PAIN Last Admin: 02/19/17 13:42 Dose: 10 mg Multivitamins/Minerals (Theragran/Minerals Tab*) 1 tab PO DAILY [facility] Last Admin: 02/19/17 08:12 Dose: 1 tab Nystatin (Nystatin Suspension*) 500,000 units PO QID [facility] Stop: 02/23/17 22:20 Last Admin: 02/19/17 13:40 Dose: 500,000 units Omeprazole (Prilosec Cap*) 20 mg PO DAILY@0730 [facility] Last Admin: 02/19/17 08:12 Dose: 20 mg Oxycodone HCl (Roxycodone Tab*) 15 mg PO Q4H PRN PRN Reason: PAIN Last Admin: 02/19/17 08:09 Dose: 15 mg Pharmacy Profile Note (Fentanyl Patch Check Q Shift) 1 note N/A 0700,1900 [facility] Last Admin: 02/19/17 07:08 Dose: 1 note Polyvinyl Alcohol (Polyvinyl Alcohol 1.4% Opth*) 1 drop BOTH EYES BID [facility] Last Admin: 02/19/17 08:15 Dose: 1 drop Prednisone (Deltasone Tab*) 20 mg PO DAILY WITH MEAL [facility] Psyllium Hydrophilic Mucilloid (Metamucil Hang*) 1 pkt PO DAILY PRN PRN Reason: CONSTIPATION Sertraline HCl (Zoloft*) 25 mg PO DAILY [facility] Last Admin: 02/19/17 08:11 Dose: 25 mg Sertraline HCl (Zoloft*) 50 mg PO DAILY [facility] Last Admin: 02/19/17 08:11 Dose: 50 mg Tiotropium [place] (Spiriva Cap.Inh*) 1 cap INH DAILY [facility] Last Admin: 02/19/17 09:05 Dose: 1 cap Vital Signs: Vital Signs: Temp Pulse Resp BP Pulse Ox 98.3 F 66 14 118/45 95 02/19/17 11:50 02/19/17 11:50 02/19/17 13:42 02/19/17 11:50 02/19/17 11:50 Patient Weight: Weight 137 lb 1.6 oz Intake and Output: Intake & Output 02/17/17 02/18/17 02/19/17 02/20/17 06:59 06:59 06:59 06:59 Intake Total 1550 1360 1490 790 Output Total 200 990 300 Balance 8855 123 0090 790 Intake: Oral 1550 1360 1490 790 Output: Urine 200 990 300 Other: Estimated Void Large Medium Medium Small # Bowel Movements 0 0 0 0 Estimated Stool Amount Small Small # Voids 1 2 2 2 ADLs: Meal Record Start: 02/15/17 23: 16 Freq: DAILY@0900,1400,1800 Status: Active Document 02/16/17 09:00 [id number] (Rec: 02/16/17 09:14 [id number] MED-C09) Document 02/16/17 13:24 [id number] (Rec: 02/16/17 13:24 [id number] MED-C09) Document 02/16/17 18:00 [id number] (Rec: 02/16/17 20:54 [id number] MED-C09) Document 02/17/17 09:00 [id number] (Rec: 02/17/17 10:10 [id number] MED-C15) Document 02/17/17 14:00 [id number] (Rec: 02/17/17 14:28 [id number] MED-C15) Document 02/17/17 18:00 [id number] (Rec: 02/17/17 20:57 [id number] MED-C09) Document 02/18/17 09:00 [id number] (Rec: 02/18/17 10:40 [id number] MED-C11) Document 02/18/17 14:00 [id number] (Rec: 02/18/17 14:50 [id number] MED-C09) Document 02/18/17 18:00 [id number] (Rec: 02/18/17 18:50 [id number] MED-C09) Document 02/19/17 09:00 [id number] (Rec: 02/19/17 09:55 [id number] MED-C11) Document 02/19/17 14:00 [id number] (Rec: 02/19/17 14:37 [id number] MED-C11) Intake and Output Start: 02/15/17 23: 16 Freq: DAILY@0600,1400,2200 Status: Active Document 02/16/17 06:00 [id number] (Rec: 02/16/17 06:16 [id number] MED-C42) Document 02/16/17 13:24 [id number] (Rec: 02/16/17 13:24 [id number] MED-C09) Document 02/16/17 22:00 [id number] (Rec: 02/16/17 22:08 [id number] MED-C09) Document 02/17/17 05:41 [id number] (Rec: 02/17/17 05:43 [id number] MED-C42) Document 02/17/17 14:00 [id number] (Rec: 02/17/17 14:28 [id number] MED-C15) Document 02/17/17 22:00 [id number] (Rec: 02/17/17 22:13 [id number] MED-C09) Document 02/18/17 06:00 [id number] (Rec: 02/18/17 06:17 [id number] MED-C42) Document 02/18/17 14:00 [id number] (Rec: 02/18/17 14:50 [id number] MED-C09) Document 02/18/17 22:00 [id number] (Rec: 02/18/17 22:10 [id number] MED-C09) Document 02/19/17 06:00 [id number] (Rec: 02/19/17 06:24 [id number] MEDL-C01) Document 02/19/17 14:00 [id number] (Rec: 02/19/17 14:37 [id number] MED-C11) General Impression: Pleasant, cooperative, loquacious woman in NAD but visibly SOB with talking for any period of time. Head: Symmetrical Eyes: No Scleral Icterus Ears/Nose/Mouth/Throat: Clear Oropharnyx, Mucous Membranes Moist Neck: NL Appearance and Movements; NL JVP, No Thyroid Enlargement, Masses Cardiovascular: NL Sounds; No Murmurs; No JVD, No Edema Respiratory: Symmetrical Chest Expansion and Respiratory Effort, - - Distant BS Abdominal: NL Sounds; No Tenderness; No Distention, No Hepatosplenomegaly Extremities: No Edema, No Clubbing, Cyanosis Neurological: Alert and Oriented x 3, NL Sensation, - - Some memory deficits with difficulty with word and name retrieval. - Assessment Assessment: 86 year old woman with advanced emphysema andincreasing O2 requirements, already on BiPap at night, who would like to remain in her current living situation but hopes she will be able to get assistance when she needs it with meds and increasing O2 so that she will not have to return to the hospital so frequently. I spoke to her daughter Ana who is hoping the patient is eligible for hospice services so that she can have the nursing support for this. It should be possible to have extra oxygen available to this patient when she needs it. I have asked Ana to obtain the most recent PFTs from [place] to see if the patient retains CO2 and to see whether her FEV1 meets hospice requirement of being < or = 35% predicted. I suspect the patient is appropriate for hospice services because she is dyspneic at rest. Ana also asked that Dr. Thomas be asked to evaluate this patient for consideration of a repeat sleep study. One hour was spent on this visit, 40 minutes spent in face to face contact with the patient and with her daughter Ana on the phone. Thanks for requesting the consultation. - Plan Consult Plan (MU): Hospice - Time On Unit Date of Evaluation: 02/19/17 Hospice Consult Time in: 14:15 Hospice Consult Time Out: 15:15 Hospice Consult Time Total: 60 > 50% of Time Spend In Counseling or Coordinating Care: Yes
[2017-02-19] MEDS: Divalproex ER TAB(*) 500 MG PO SCH (17:51)
[2017-02-20] MEDS: Morphine ORAL.SOLN 10 mg* 2 MG/ML UDC 5 ml PO PRN ×9 (00:58→22:24)
[2017-02-20] MEDS: fentaNYL Patch Check Q Shift 1 NOTE SCH ×3 (01:36→19:08)
[2017-02-20] MEDS: Heparin VIAL(*) 5000 UNITS/ML VIAL (FIVE THOUSAND) SUBCUT SCH ×3 (06:16→20:55)
[2017-02-20] MEDS: Levothyroxine TAB* 100 MCG TAB PO SCH (06:16)
[2017-02-20] MEDS: amLODIPine TAB* 5 MG PO SCH (08:08)
[2017-02-20] MEDS: Omeprazole CAP* 20 MG PO SCH (08:08)
[2017-02-20] MEDS: Tiotropium CAP.INH* CAP.INH/18 MCG INH SCH (08:08)
[2017-02-20] MEDS: Sertraline* 25 MG TAB PO SCH (08:08)
[2017-02-20] MEDS: Mometasone/Formoter 200/5 MDI INH SCH ×2 (08:08→20:45)
[2017-02-20] MEDS: guaiFENesin ER TAB 600 MG PO SCH ×2 (08:08→20:55)
[2017-02-20] MEDS: Sertraline* 50 MG TAB PO SCH (08:08)
[2017-02-20] MEDS: Nystatin SUSPENSION* 100000 UNITS/ML 5 ML UDC PO SCH ×4 (08:08→20:55)
[2017-02-20] MEDS: Gabapentin CAP(*) 300 MG PO SCH ×3 (08:09→20:54)
[2017-02-20] MEDS: Docusate CAP* 100 MG PO SCH (08:09)
[2017-02-20] MEDS: Multivitamins/Minerals TAB PO SCH (08:09)
[2017-02-20] MEDS: Artificial Tears* 15 ML BTL BOTH EYES SCH ×2 (08:10→21:01)
[2017-02-20] MEDS: Fluticasone NASAL SPRAY 50MCG* 16 gm SPRAY BTL BOTH NARES SCH (08:21)
[2017-02-20] MEDS ORDERED: predniSONE TAB* 20 MG PO SCH (08:30)
[2017-02-20] MEDS: Butalb/Acetamin/Caff TAB* 1 TAB PO PRN (13:50)
--- NOTE | 2017-02-20 16:31 | PN ---
Subjective Date of Service: 02/20/17 Interval History: No new c/o. Objective Active Medications: Acetaminophen/Butalbital/Caffeine (Fioricet Tab*) 1 tab PO BID PRN PRN Reason: MIGRAINE HEADACHE Last Admin: 02/20/17 13:50 Dose: 1 tab Albuterol (Ventolin 2.5 Mg/3 Ml Neb.Chely*) 2.5 mg INH Q4H PRN PRN Reason: DYSPNEA Amlodipine Besylate (Norvasc Tab*) 5 mg PO QAM [facility] Last Admin: 02/20/17 08:08 Dose: 5 mg Divalproex Sodium (Depakote Er Tab(*)) 500 mg PO QPM [facility] Last Admin: 02/19/17 17:51 Dose: 500 mg Docusate Sodium (Colace Cap*) 100 mg PO DAILY [facility] Last Admin: 02/20/17 08:09 Dose: 100 mg Fentanyl (Duragesic Patch 75 Mcg/Hr*) 75 mcg TRANSDERM Q72H [facility] Last Admin: 02/18/17 21:19 Dose: 75 mcg Fluticasone Propionate (Flonase Nasal [place] 50mcg*) 1 spray BOTH NARES DAILY [facility] Last Admin: 02/20/17 08:21 Dose: 1 spray Gabapentin (Neurontin Cap(*)) 300 mg PO TID [facility] Last Admin: 02/20/17 13:49 Dose: 300 mg Guaifenesin (Mucinex*) 600 mg PO BID [facility] Last Admin: 02/20/17 08:08 Dose: 600 mg Heparin Sodium (Porcine) (Heparin Vial(*)) 5,000 units SUBCUT Q8HR [facility] Last Admin: 02/20/17 13:52 Dose: 5,000 units Levothyroxine Sodium (Synthroid Tab*) 100 mcg PO DAILY@0600 [facility] Last Admin: 02/20/17 06:16 Dose: 100 mcg Magnesium Hydroxide (Milk Of Magnesia Liq*) 30 ml PO DAILY PRN PRN Reason: CONSTIPATION Mometasone Furoate/Formoterol Fumar (Dulera 200/5 Mdi*) 2 puff INH BID [facility] Last Admin: 02/20/17 08:08 Dose: 2 puff Morphine Sulfate (Morphine Oral.Soln 10 Mg*) 10 mg PO Q2H PRN PRN Reason: PAIN Last Admin: 02/20/17 13:51 Dose: 10 mg Multivitamins/Minerals (Theragran/Minerals Tab*) 1 tab PO DAILY [facility] Last Admin: 02/20/17 08:09 Dose: 1 tab Nystatin (Nystatin Suspension*) 500,000 units PO QID [facility] Stop: 02/23/17 22:20 Last Admin: 02/20/17 13:47 Dose: 500,000 units Omeprazole (Prilosec Cap*) 20 mg PO DAILY@0730 [facility] Last Admin: 02/20/17 08:08 Dose: 20 mg Oxycodone HCl (Roxycodone Tab*) 15 mg PO Q4H PRN PRN Reason: PAIN Last Admin: 02/19/17 08:09 Dose: 15 mg Pharmacy Profile Note (Fentanyl Patch Check Q Shift) 1 note N/A 0700,1900 [facility] Last Admin: 02/20/17 07:12 Dose: 1 note Polyvinyl Alcohol (Polyvinyl Alcohol 1.4% Opth*) 1 drop BOTH EYES BID [facility] Last Admin: 02/20/17 08:10 Dose: 1 drop Prednisone (Deltasone Tab*) 20 mg PO DAILY WITH MEAL [facility] Last Admin: 02/20/17 08:08 Dose: 20 mg Psyllium Hydrophilic Mucilloid (Metamucil Hang*) 1 pkt PO DAILY PRN PRN Reason: CONSTIPATION Sertraline HCl (Zoloft*) 25 mg PO DAILY [facility] Last Admin: 02/20/17 08:08 Dose: 25 mg Sertraline HCl (Zoloft*) 50 mg PO DAILY [facility] Last Admin: 02/20/17 08:08 Dose: 50 mg Tiotropium [place] (Spiriva Cap.Inh*) 1 cap INH DAILY [facility] Last Admin: 02/20/17 08:08 Dose: 1 cap Vital Signs 02/19/17 02/19/17 02/19/17 17:39 17:51 19:51 Temperature Pulse Rate Respiratory 20 19 18 Rate Blood Pressure (mmHg) O2 Sat by Pulse Oximetry 02/19/17 02/19/17 02/19/17 20:00 20:26 20:27 Temperature 98.3 F Pulse Rate 66 Respiratory 20 20 24 Rate Blood Pressure 142/53 (mmHg) O2 Sat by Pulse 94 Oximetry 02/19/17 02/19/17 02/19/17 20:29 21:48 22:26 Temperature Pulse Rate Respiratory 20 20 18 Rate Blood Pressure (mmHg) O2 Sat by Pulse Oximetry 02/19/17 02/19/17 02/19/17 22:35 23:27 23:48 Temperature 97.3 F Pulse Rate 58 Respiratory 20 16 20 Rate Blood Pressure 149/62 (mmHg) O2 Sat by Pulse 92 Oximetry 02/20/17 02/20/17 02/20/17 00:58 02:58 04:20 Temperature Pulse Rate Respiratory 18 16 22 Rate Blood Pressure (mmHg) O2 Sat by Pulse Oximetry 02/20/17 02/20/17 02/20/17 04:44 06:17 06:20 Temperature Pulse Rate 55 Respiratory 16 20 20 Rate Blood Pressure 146/56 (mmHg) O2 Sat by Pulse 94 Oximetry 02/20/17 02/20/17 02/20/17 07:27 08:00 08:09 Temperature 97.6 F Pulse Rate 56 Respiratory 20 20 18 Rate Blood Pressure 148/61 (mmHg) O2 Sat by Pulse 94 Oximetry 02/20/17 02/20/17 02/20/17 08:14 08:17 08:26 Temperature Pulse Rate 58 Respiratory 16 20 20 Rate Blood Pressure (mmHg) O2 Sat by Pulse 98 Oximetry 02/20/17 02/20/17 02/20/17 10:09 10:26 11:08 Temperature Pulse Rate Respiratory 20 20 20 Rate Blood Pressure (mmHg) O2 Sat by Pulse Oximetry 02/20/17 02/20/17 02/20/17 11:28 13:08 13:49 Temperature 97.2 F Pulse Rate 66 Respiratory 21 20 20 Rate Blood Pressure 119/46 (mmHg) O2 Sat by Pulse 96 Oximetry 02/20/17 02/20/17 02/20/17 13:50 13:51 15:23 Temperature Pulse Rate Respiratory 20 20 18 Rate Blood Pressure (mmHg) O2 Sat by Pulse Oximetry 02/20/17 02/20/17 15:24 15:25 Temperature Pulse Rate Respiratory 18 18 Rate Blood Pressure (mmHg) O2 Sat by Pulse Oximetry Oxygen Devices in Use Now: Nasal Cannula - at 2 L, 02 sat 92% Appearance: Alert, partly up in bed. In good spirits. Looks comfortable. Eyes: No Scleral Icterus Neck: NL Appearance and Movements; NL JVP, No Thyroid Enlargement, Masses Respiratory: Symmetrical Chest Expansion and Respiratory Effort, Clear to Auscultation, Clear to Percussion Cardiovascular: NL Sounds; No Murmurs; No JVD, RRR, No Edema, - Extremities: No Edema, No Clubbing, Cyanosis, - Skin: No Rash or Ulcers, No Nodules or Sclerosis, - Neurological: Alert and Oriented x 3, NL Sensation Result Diagrams: 02/15/17 21:11 02/15/17 21:11 Additional Lab and Data: Lab Results 02/15/17 02/15/17 02/15/17 Range/Units 21:11 21:11 21:11 WBC 7.1 (3.5-10.8) 10^3/ul RBC 3.59 L (4.0-5.4) 10^6/ul Hgb 12.5 (12.0-16.0) g/dl Hct 37 (35-47) % MCV 103 H (80-97) fL MCH 35 H (27-31) pg MCHC 34 (31-36) g/dl RDW 13 (10.5-15) % Plt Count 395 (150-450) 10^3/ul MPV 7 L (7.4-10.4) um3 Neut % (Auto) 71.2 (38-83) % Lymph % (Auto) 14.8 L (25-47) % [place] % (Auto) 11.9 H (1-9) % Eos % (Auto) 1.6 (0-6) % Baso % (Auto) 0.5 (0-2) % Absolute Neuts (auto) 5.0 (1.5-7.7) 10^3/ul Absolute Lymphs (auto) 1.0 (1.0-4.8) 10^3/ul Absolute Monos (auto) 0.8 (0-0.8) 10^3/ul Absolute Eos (auto) 0.1 (0-0.6) 10^3/ul Absolute Basos (auto) 0 (0-0.2) 10^3/ul Absolute Nucleated RBC 0 10^3/ul Nucleated RBC % 0 INR (Anticoag Therapy) 0.87 L (0.89-1.11) D-Dimer, Quantitative < 200 (Less Than 230) ng/mL Sodium 137 (133-145) mmol/L Potassium 4.1 (3.5-5.0) mmol/L Chloride 102 (101-111) mmol/L Carbon Dioxide 32 (22-32) mmol/L Anion Gap 3 (2-11) mmol/L BUN 18 (6-24) mg/dL Creatinine 0.65 (0.51-0.95) mg/dL Est GFR ( Amer) 111.4 (>60) Est GFR (Non-Af Amer) 86.6 (>60) BUN/Creatinine Ratio 27.7 H (8-20) Glucose 124 H (70-100) mg/dL Lactic Acid (0.5-2.0) mmol/L Calcium 9.3 (8.6-10.3) mg/dL Total Bilirubin 0.20 (0.2-1.0) mg/dL AST 14 (13-39) U/L ALT 7 (7-52) U/L Alkaline Phosphatase 80 (34-104) U/L Troponin I 0.03 (<0.04) ng/mL C-Reactive Protein 4.43 (< 5.00) mg/L B-Natriuretic Peptide ( - 100) pg/mL Total Protein 6.8 (6.4-8.9) g/dL Albumin 3.7 (3.2-5.2) g/dL Globulin 3.1 (2-4) g/dL Albumin/Globulin Ratio 1.2 (1-3) 02/15/17 02/15/17 Range/Units 21:11 21:11 WBC (3.5-10.8) 10^3/ul RBC (4.0-5.4) 10^6/ul Hgb (12.0-16.0) g/dl Hct (35-47) % MCV (80-97) fL MCH (27-31) pg MCHC (31-36) g/dl RDW (10.5-15) % Plt Count (150-450) 10^3/ul MPV (7.4-10.4) um3 Neut % (Auto) (38-83) % Lymph % (Auto) (25-47) % [place] % (Auto) (1-9) % Eos % (Auto) (0-6) % Baso % (Auto) (0-2) % Absolute Neuts (auto) (1.5-7.7) 10^3/ul Absolute Lymphs (auto) (1.0-4.8) 10^3/ul Absolute Monos (auto) (0-0.8) 10^3/ul Absolute Eos (auto) (0-0.6) 10^3/ul Absolute Basos (auto) (0-0.2) 10^3/ul Absolute Nucleated RBC 10^3/ul Nucleated RBC % INR (Anticoag Therapy) (0.89-1.11) D-Dimer, Quantitative (Less Than 230) ng/mL Sodium (133-145) mmol/L Potassium (3.5-5.0) mmol/L Chloride (101-111) mmol/L Carbon Dioxide (22-32) mmol/L Anion Gap (2-11) mmol/L BUN (6-24) mg/dL Creatinine (0.51-0.95) mg/dL Est GFR ( Amer) (>60) Est GFR (Non-Af Amer) (>60) BUN/Creatinine Ratio (8-20) Glucose (70-100) mg/dL Lactic Acid 1.4 (0.5-2.0) mmol/L Calcium (8.6-10.3) mg/dL Total Bilirubin (0.2-1.0) mg/dL AST (13-39) U/L ALT (7-52) U/L Alkaline Phosphatase (34-104) U/L Troponin I (<0.04) ng/mL C-Reactive Protein (< 5.00) mg/L B-Natriuretic Peptide 59 ( - 100) pg/mL Total Protein (6.4-8.9) g/dL Albumin (3.2-5.2) g/dL Globulin (2-4) g/dL Albumin/Globulin Ratio (1-3) Microbiology and Other Data: Microbiology 02/16/17 00:30 Nasal Screen MRSA (PCR)([facility]) - Final Nasal Mrsa Negative Assess/Plan/Problems-Billing Assessment: Pt is an 83 y/o F w/ PMH significant for COPD (on home oxygen at 3- 5 L), HTN, hypothyroidism, migraines, chronic back pain who presents to the ER from [facility] with SOB. Diagnosed and treated with pneumonia 2 weeks prior to admission - Patient Problems (1) COPD (chronic obstructive pulmonary disease) Current Visit: No Status: Acute Code(s): J44.9 - CHRONIC OBSTRUCTIVE PULMONARY DISEASE, UNSPECIFIED SNOMED Code(s): 97049687 Comment: Continue prednisone taper Stable. Recieved Azithromycin in ED. no further tx needed. bibasiliar infiltrates on CXR are likely atelectasis related. She remains afebrile since admission. Patient elgible for Hospice services. (2) Hypothyroidism Current Visit: No Status: Acute Code(s): E03.9 - HYPOTHYROIDISM, UNSPECIFIED SNOMED Code(s): 21216605 Comment: TSH 1.6 in 09/2016. Continue home dose levothyroxine. (3) HTN (hypertension) Current Visit: No Status: Acute Code(s): I10 - ESSENTIAL (PRIMARY) HYPERTENSION SNOMED Code(s): 46990984 Comment: Resume home dose of Amlodipine. (4) Chronic pain Current Visit: No Status: Acute Code(s): G89.29 - OTHER CHRONIC PAIN SNOMED Code(s): 43022378 Comment: Oral morphine solution helped her pain. Status and Disposition: inpatient
[2017-02-20] MEDS ORDERED: predniSONE TAB* 10 MG PO SCH (16:36)
[2017-02-20] MEDS: Divalproex ER TAB(*) 500 MG PO SCH (17:05)
[2017-02-21] MEDS: Morphine ORAL.SOLN 10 mg* 2 MG/ML UDC 5 ml PO PRN ×8 (02:32→18:54)
[2017-02-21] MEDS: Butalb/Acetamin/Caff TAB* 1 TAB PO PRN ×3 (02:33→21:30)
[2017-02-21] MEDS: Heparin VIAL(*) 5000 UNITS/ML VIAL (FIVE THOUSAND) SUBCUT SCH ×3 (05:07→21:27)
[2017-02-21] MEDS: Levothyroxine TAB* 100 MCG TAB PO SCH (05:07)
[2017-02-21] MEDS: fentaNYL Patch Check Q Shift 1 NOTE SCH ×2 (06:52→18:55)
[2017-02-21] MEDS: Omeprazole CAP* 20 MG PO SCH (07:36)
[2017-02-21] MEDS: Tiotropium CAP.INH* CAP.INH/18 MCG INH SCH (08:05)
[2017-02-21] MEDS: Mometasone/Formoter 200/5 MDI INH SCH ×2 (08:05→20:35)
[2017-02-21] MEDS: Nystatin SUSPENSION* 100000 UNITS/ML 5 ML UDC PO SCH ×4 (09:09→21:28)
[2017-02-21] MEDS: Psyllium PAK PO PRN (09:09)
[2017-02-21] MEDS: Gabapentin CAP(*) 300 MG PO SCH ×3 (09:10→21:27)
[2017-02-21] MEDS: Sertraline* 25 MG TAB PO SCH (09:10)
[2017-02-21] MEDS: Sertraline* 50 MG TAB PO SCH (09:10)
[2017-02-21] MEDS: Fluticasone NASAL SPRAY 50MCG* 16 gm SPRAY BTL BOTH NARES SCH (09:11)
[2017-02-21] MEDS: Multivitamins/Minerals TAB PO SCH (09:11)
[2017-02-21] MEDS: guaiFENesin ER TAB 600 MG PO SCH ×2 (09:11→21:30)
[2017-02-21] MEDS: amLODIPine TAB* 5 MG PO SCH (09:11)
[2017-02-21] MEDS: Artificial Tears* 15 ML BTL BOTH EYES SCH ×2 (09:11→21:28)
[2017-02-21] MEDS: Docusate CAP* 100 MG PO SCH (09:11)
--- NOTE | 2017-02-21 13:34 | PN ---
Subjective Date of Service: 02/21/17 Interval History: No new c/o, seems content. Objective Active Medications: Acetaminophen/Butalbital/Caffeine (Fioricet Tab*) 1 tab PO BID PRN PRN Reason: MIGRAINE HEADACHE Last Admin: 02/21/17 02:33 Dose: 1 tab Albuterol (Ventolin 2.5 Mg/3 Ml Neb.Chely*) 2.5 mg INH Q4H PRN PRN Reason: DYSPNEA Amlodipine Besylate (Norvasc Tab*) 5 mg PO QAM [facility] Last Admin: 02/21/17 09:11 Dose: 5 mg Divalproex Sodium (Depakote Er Tab(*)) 500 mg PO QPM [facility] Last Admin: 02/20/17 17:05 Dose: 500 mg Docusate Sodium (Colace Cap*) 100 mg PO DAILY [facility] Last Admin: 02/21/17 09:11 Dose: 100 mg Fentanyl (Duragesic Patch 75 Mcg/Hr*) 75 mcg TRANSDERM Q72H [facility] Last Admin: 02/18/17 21:19 Dose: 75 mcg Fluticasone Propionate (Flonase Nasal [place] 50mcg*) 1 spray BOTH NARES DAILY [facility] Last Admin: 02/21/17 09:11 Dose: 1 spray Gabapentin (Neurontin Cap(*)) 300 mg PO TID [facility] Last Admin: 02/21/17 12:59 Dose: 300 mg Guaifenesin (Mucinex*) 600 mg PO BID [facility] Last Admin: 02/21/17 09:11 Dose: 600 mg Heparin Sodium (Porcine) (Heparin Vial(*)) 5,000 units SUBCUT Q8HR [facility] Last Admin: 02/21/17 12:59 Dose: 5,000 units Levothyroxine Sodium (Synthroid Tab*) 100 mcg PO DAILY@0600 [facility] Last Admin: 02/21/17 05:07 Dose: 100 mcg Magnesium Hydroxide (Milk Of Magnesia Liq*) 30 ml PO DAILY PRN PRN Reason: CONSTIPATION Mometasone Furoate/Formoterol Fumar (Dulera 200/5 Mdi*) 2 puff INH BID [facility] Last Admin: 02/21/17 08:05 Dose: 2 puff Morphine Sulfate (Morphine Oral.Soln 10 Mg*) 10 mg PO Q2H PRN PRN Reason: PAIN Last Admin: 02/21/17 12:58 Dose: 10 mg Multivitamins/Minerals (Theragran/Minerals Tab*) 1 tab PO DAILY [facility] Last Admin: 02/21/17 09:11 Dose: 1 tab Nystatin (Nystatin Suspension*) 500,000 units PO QID [facility] Stop: 02/23/17 22:20 Last Admin: 02/21/17 12:59 Dose: 500,000 units Omeprazole (Prilosec Cap*) 20 mg PO DAILY@0730 [facility] Last Admin: 02/21/17 07:36 Dose: 20 mg Oxycodone HCl (Roxycodone Tab*) 15 mg PO Q4H PRN PRN Reason: PAIN Last Admin: 02/19/17 08:09 Dose: 15 mg Pharmacy Profile Note (Fentanyl Patch Check Q Shift) 1 note N/A 0700,1900 [facility] Last Admin: 02/21/17 06:52 Dose: 1 note Polyvinyl Alcohol (Polyvinyl Alcohol 1.4% Opth*) 1 drop BOTH EYES BID [facility] Last Admin: 02/21/17 09:11 Dose: 1 drop Psyllium Hydrophilic Mucilloid (Metamucil Hang*) 1 pkt PO DAILY PRN PRN Reason: CONSTIPATION Last Admin: 02/21/17 09:09 Dose: 1 pkt Sertraline HCl (Zoloft*) 25 mg PO DAILY [facility] Last Admin: 02/21/17 09:10 Dose: 25 mg Sertraline HCl (Zoloft*) 50 mg PO DAILY [facility] Last Admin: 02/21/17 09:10 Dose: 50 mg Tiotropium [place] (Spiriva Cap.Inh*) 1 cap INH DAILY [facility] Last Admin: 02/21/17 08:05 Dose: 1 cap Vital Signs 02/20/17 02/20/17 02/20/17 13:49 13:50 13:51 Temperature Pulse Rate Respiratory 20 20 20 Rate Blood Pressure (mmHg) O2 Sat by Pulse Oximetry 02/20/17 02/20/17 02/20/17 15:23 15:24 15:25 Temperature Pulse Rate Respiratory 18 18 18 Rate Blood Pressure (mmHg) O2 Sat by Pulse Oximetry 02/20/17 02/20/17 02/20/17 16:17 17:04 18:27 Temperature 98.0 F Pulse Rate 64 Respiratory 22 18 18 Rate Blood Pressure 123/53 (mmHg) O2 Sat by Pulse 95 Oximetry 02/20/17 02/20/17 02/20/17 19:49 19:58 20:00 Temperature 98.4 F Pulse Rate 73 Respiratory 23 18 16 Rate Blood Pressure 126/52 (mmHg) O2 Sat by Pulse 97 Oximetry 02/20/17 02/20/17 02/20/17 20:54 21:58 22:24 Temperature Pulse Rate Respiratory 16 20 20 Rate Blood Pressure (mmHg) O2 Sat by Pulse Oximetry 02/20/17 02/20/17 02/21/17 22:54 23:28 00:24 Temperature 97.4 F Pulse Rate 63 Respiratory 16 16 16 Rate Blood Pressure 133/55 (mmHg) O2 Sat by Pulse 91 Oximetry 02/21/17 02/21/17 02/21/17 02:32 02:33 02:50 Temperature 98.4 F Pulse Rate 66 Respiratory 16 16 16 Rate Blood Pressure 113/50 (mmHg) O2 Sat by Pulse 99 Oximetry 02/21/17 02/21/17 02/21/17 04:32 04:33 05:07 Temperature Pulse Rate Respiratory 16 16 16 Rate Blood Pressure (mmHg) O2 Sat by Pulse Oximetry 02/21/17 02/21/17 02/21/17 07:18 09:09 09:10 Temperature Pulse Rate Respiratory 18 18 18 Rate Blood Pressure (mmHg) O2 Sat by Pulse Oximetry 02/21/17 02/21/17 02/21/17 11:09 12:58 12:59 Temperature Pulse Rate Respiratory 16 16 126 Rate Blood Pressure (mmHg) O2 Sat by Pulse Oximetry Oxygen Devices in Use Now: Nasal Cannula - at 2 L, 02 sat 92% Appearance: Alert, partly up in bed. In good spirits. Looks comfortable. Eyes: No Scleral Icterus Extremities: No Edema, No Clubbing, Cyanosis, - Skin: No Rash or Ulcers, No Nodules or Sclerosis, - Neurological: Alert and Oriented x 3, NL Sensation Result Diagrams: 02/15/17 21:11 02/15/17 21:11 Additional Lab and Data: Lab Results 02/15/17 02/15/17 02/15/17 Range/Units 21:11 21:11 21:11 WBC 7.1 (3.5-10.8) 10^3/ul RBC 3.59 L (4.0-5.4) 10^6/ul Hgb 12.5 (12.0-16.0) g/dl Hct 37 (35-47) % MCV 103 H (80-97) fL MCH 35 H (27-31) pg MCHC 34 (31-36) g/dl RDW 13 (10.5-15) % Plt Count 395 (150-450) 10^3/ul MPV 7 L (7.4-10.4) um3 Neut % (Auto) 71.2 (38-83) % Lymph % (Auto) 14.8 L (25-47) % [place] % (Auto) 11.9 H (1-9) % Eos % (Auto) 1.6 (0-6) % Baso % (Auto) 0.5 (0-2) % Absolute Neuts (auto) 5.0 (1.5-7.7) 10^3/ul Absolute Lymphs (auto) 1.0 (1.0-4.8) 10^3/ul Absolute Monos (auto) 0.8 (0-0.8) 10^3/ul Absolute Eos (auto) 0.1 (0-0.6) 10^3/ul Absolute Basos (auto) 0 (0-0.2) 10^3/ul Absolute Nucleated RBC 0 10^3/ul Nucleated RBC % 0 INR (Anticoag Therapy) 0.87 L (0.89-1.11) D-Dimer, Quantitative < 200 (Less Than 230) ng/mL Sodium 137 (133-145) mmol/L Potassium 4.1 (3.5-5.0) mmol/L Chloride 102 (101-111) mmol/L Carbon Dioxide 32 (22-32) mmol/L Anion Gap 3 (2-11) mmol/L BUN 18 (6-24) mg/dL Creatinine 0.65 (0.51-0.95) mg/dL Est GFR ( Amer) 111.4 (>60) Est GFR (Non-Af Amer) 86.6 (>60) BUN/Creatinine Ratio 27.7 H (8-20) Glucose 124 H (70-100) mg/dL Lactic Acid (0.5-2.0) mmol/L Calcium 9.3 (8.6-10.3) mg/dL Total Bilirubin 0.20 (0.2-1.0) mg/dL AST 14 (13-39) U/L ALT 7 (7-52) U/L Alkaline Phosphatase 80 (34-104) U/L Troponin I 0.03 (<0.04) ng/mL C-Reactive Protein 4.43 (< 5.00) mg/L B-Natriuretic Peptide ( - 100) pg/mL Total Protein 6.8 (6.4-8.9) g/dL Albumin 3.7 (3.2-5.2) g/dL Globulin 3.1 (2-4) g/dL Albumin/Globulin Ratio 1.2 (1-3) 02/15/17 02/15/17 Range/Units 21:11 21:11 WBC (3.5-10.8) 10^3/ul RBC (4.0-5.4) 10^6/ul Hgb (12.0-16.0) g/dl Hct (35-47) % MCV (80-97) fL MCH (27-31) pg MCHC (31-36) g/dl RDW (10.5-15) % Plt Count (150-450) 10^3/ul MPV (7.4-10.4) um3 Neut % (Auto) (38-83) % Lymph % (Auto) (25-47) % Kane % (Auto) (1-9) % Eos % (Auto) (0-6) % Baso % (Auto) (0-2) % Absolute Neuts (auto) (1.5-7.7) 10^3/ul Absolute Lymphs (auto) (1.0-4.8) 10^3/ul Absolute Monos (auto) (0-0.8) 10^3/ul Absolute Eos (auto) (0-0.6) 10^3/ul Absolute Basos (auto) (0-0.2) 10^3/ul Absolute Nucleated RBC 10^3/ul Nucleated RBC % INR (Anticoag Therapy) (0.89-1.11) D-Dimer, Quantitative (Less Than 230) ng/mL Sodium (133-145) mmol/L Potassium (3.5-5.0) mmol/L Chloride (101-111) mmol/L Carbon Dioxide (22-32) mmol/L Anion Gap (2-11) mmol/L BUN (6-24) mg/dL Creatinine (0.51-0.95) mg/dL Est GFR ( Amer) (>60) Est GFR (Non-Af Amer) (>60) BUN/Creatinine Ratio (8-20) Glucose (70-100) mg/dL Lactic Acid 1.4 (0.5-2.0) mmol/L Calcium (8.6-10.3) mg/dL Total Bilirubin (0.2-1.0) mg/dL AST (13-39) U/L ALT (7-52) U/L Alkaline Phosphatase (34-104) U/L Troponin I (<0.04) ng/mL C-Reactive Protein (< 5.00) mg/L B-Natriuretic Peptide 59 ( - 100) pg/mL Total Protein (6.4-8.9) g/dL Albumin (3.2-5.2) g/dL Globulin (2-4) g/dL Albumin/Globulin Ratio (1-3) Microbiology and Other Data: Microbiology 02/16/17 00:30 Nasal Screen MRSA (PCR)([facility]) - Final Nasal Mrsa Negative Assess/Plan/Problems-Billing Assessment: Pt is an 83 y/o F w/ PMH significant for COPD (on home oxygen at 3- 5 L), HTN, hypothyroidism, migraines, chronic back pain who presents to the ER from [facility] with SOB. Diagnosed and treated with pneumonia 2 weeks prior to admission - Patient Problems (1) COPD (chronic obstructive pulmonary disease) Current Visit: No Status: Acute Code(s): J44.9 - CHRONIC OBSTRUCTIVE PULMONARY DISEASE, UNSPECIFIED SNOMED Code(s): 00856330 Comment: Last prednisone dose 02/21. Recieved Azithromycin in ED. no further tx needed. bibasiliar infiltrates on CXR are likely atelectasis related. She remains afebrile since admission. Patient elgible for Hospice services due to COPD with severe activity restriction. (2) Hypothyroidism Current Visit: No Status: Acute Code(s): E03.9 - HYPOTHYROIDISM, UNSPECIFIED SNOMED Code(s): 42831786 Comment: TSH 1.6 in 09/2016. Continue home dose levothyroxine. (3) HTN (hypertension) Current Visit: No Status: Acute Code(s): I10 - ESSENTIAL (PRIMARY) HYPERTENSION SNOMED Code(s): 86719124 Comment: Resume home dose of Amlodipine. (4) Chronic pain Current Visit: No Status: Ruled-out Code(s): G89.29 - OTHER CHRONIC PAIN SNOMED Code(s): 35616257 Comment: Oral morphine solution helped her pain. Status and Disposition: inpatient
[2017-02-21] MEDS: Divalproex ER TAB(*) 500 MG PO SCH (17:13)
[2017-02-22] MEDS: fentaNYL PATCH 75 MCG/HR* 75 MCG TRANSDERM SCH (00:08)
[2017-02-22] MEDS: Morphine ORAL.SOLN 10 mg* 2 MG/ML UDC 5 ml PO PRN ×5 (00:15→12:59)
[2017-02-22] MEDS: Heparin VIAL(*) 5000 UNITS/ML VIAL (FIVE THOUSAND) SUBCUT SCH (06:07)
[2017-02-22] MEDS: Levothyroxine TAB* 100 MCG TAB PO SCH (06:08)
[2017-02-22] MEDS: fentaNYL Patch Check Q Shift 1 NOTE SCH (07:09)
[2017-02-22 09:08] VITALS: BP 150/68
[2017-02-22] MEDS: Mometasone/Formoter 200/5 MDI INH SCH (09:09)
[2017-02-22] MEDS: Tiotropium CAP.INH* CAP.INH/18 MCG INH SCH (09:09)
[2017-02-22] MEDS: Nystatin SUSPENSION* 100000 UNITS/ML 5 ML UDC PO SCH ×2 (09:37→12:58)
[2017-02-22] MEDS: Gabapentin CAP(*) 300 MG PO SCH (09:38)
[2017-02-22] MEDS: Multivitamins/Minerals TAB PO SCH (09:38)
[2017-02-22] MEDS: Sertraline* 25 MG TAB PO SCH (09:38)
[2017-02-22] MEDS: Omeprazole CAP* 20 MG PO SCH (09:38)
[2017-02-22] MEDS: Sertraline* 50 MG TAB PO SCH (09:39)
[2017-02-22] MEDS: amLODIPine TAB* 5 MG PO SCH (09:39)
[2017-02-22] MEDS: Docusate CAP* 100 MG PO SCH (09:39)
[2017-02-22] MEDS: Artificial Tears* 15 ML BTL BOTH EYES SCH (09:40)
[2017-02-22] MEDS: guaiFENesin ER TAB 600 MG PO SCH (09:40)
[2017-02-22] MEDS: Fluticasone NASAL SPRAY 50MCG* 16 gm SPRAY BTL BOTH NARES SCH (09:40)
[2017-02-22 09:57] LABS: Hematocrit 36 % (35-47); Mean Corpuscular HGB Conc 34 g/dl (31-36); Mean Corpuscular Hemoglobin 35 pg (27-31); Mean Corpuscular Volume 102 fL (80-97); Mean Platelet Volume 7 um3 (7.4-10.4); Red Blood Count 3.47 10^6/ul (4.0-5.4); Red Cell Distribution Width 13 % (10.5-15); White Blood Count 6.9 10^3/ul (3.5-10.8)
[2017-02-22 10:20] LABS: BUN/Creatinine Ratio 32.1 (8-20); Calcium 9.6 mg/dL (8.6-10.3); EGFR African American 132.3 (>60); EGFR Non-African American 102.9 (>60); Potassium 4.2 mmol/L (3.5-5.0)
[2017-02-22] MEDS: Psyllium PAK PO PRN (12:58)
[2017-02-22] MEDS: oxyCODONE TAB* 5 MG TAB PO PRN (13:00)
--- NOTE | 2017-02-22 13:44 | DS ---
DISCHARGE SUMMARY: DATE OF ADMISSION: 02/15/17 DATE OF DISCHARGE: 02/22/17 ADMISSION DIAGNOSES: 1. Shortness of breath secondary to chronic obstructive pulmonary disease exacerbation. 2. Chronic respiratory failure. SECONDARY DIAGNOSES: 1. Depression. 2. Sleep apnea. 3. Chronic pain. 4. Hypertension. 5. Hypothyroidism. 6. Migraines. DISCHARGE DIAGNOSES: 1. Shortness of breath secondary to chronic obstructive pulmonary disease exacerbation. 2. Chronic respiratory failure. 3. Depression. 4. Sleep apnea. 5. Chronic pain. 6. Hypertension. 7. Hypothyroidism. 8. Migraines. HOSPITAL COURSE: The patient is an 86-year-old woman who presented to [facility] with a chief complaint of worsening shortness of breath. Please see H and P for further details. The patient was admitted and placed initially on Solu- Medrol and DuoNeb nebulizers. The patient did slowly improve. The patient was transitioned to prednisone on her second day of admission. Chest x- ray looked more like atelectasis than pneumonia. Because of the patient's chronic issues, a palliative care consult was obtained on 02/19/17. The hospice was awaiting further information from Pulmonary, so this is still a situation developing. The patient improved to her baseline by the date of discharge. She was off of prednisone. She was back to her usual medications. The patient was anxious to leave, but wanted to make sure she was safe and we had a long conversation concerning her chronic issues and how she was through the acute stage and she was ready for discharge. Family was very happy, they wanted her to go to [facility] and the patient was stable to be discharged on 02/22/17. PHYSICAL EXAMINATION: On the date of discharge, temperature 98.6 degrees, heart rate 56 beats per minute, respiratory rate 21 breaths per minute, pulse ox 100% on 3 L, blood pressure 150/68. HEENT: Normocephalic, atraumatic. Pupils equal, round, and reactive to light. Moist mucous membranes. Neck: Supple. No JVD, bruits, palpable thyroid, or lymphadenopathy. Chest: She has got some coarse breath sounds. Cardiovascular Exam: S1 and S2 appreciated. Abdominal Exam: Positive bowel sounds in all 4 quadrants, soft, nontender, and nondistended. No hepatosplenomegaly. Extremities: No cyanosis, clubbing, or edema. +2 peripheral pulses bilaterally. Neuro: Alert and oriented x3. Moves all extremities. Skin: No rashes or abnormalities. STUDIES DONE WHILE IN THE HOSPITAL: Chest x-ray on 02/15/17, impression: Small bibasilar infiltrates. DISCHARGE MEDICATIONS: 1. Spacer for inhalers inhaled daily as needed. 2. Carboxymethylcellulose/Optive 1 drop both eyes twice daily. 3. DuoNeb 1 nebulizer inhaled 3 times a day. 4. Fluticasone nasal spray 1 spray both nares daily. 5. Docusate 100 mg daily. 6. Depakote ER 500 mg in the evening. 5. Calcium with vitamin D one chewable tablet daily. 6. Fioricet 1 tablet 3 times a day as needed. 7. Combivent 1 puff inhaled q.4 hours as needed. 8. Multivitamin 1 tablet daily. 9. Milk of magnesia 1 tablet daily. 10. Magnesium hydroxide 30 cc daily as needed. 11. Levothyroxine 100 mcg daily. 12. Gabapentin 300 mg 3 times a day. 13. Advair Diskus 500/50 one puff inhaled twice daily. 14. Guaifenesin 600 mg twice daily. 15. Fentanyl patch 75 mcg per hour q.72 hours. 16. Amlodipine 5 mg in the morning. 17. Spiriva 1 capsule inhaled daily. 18. Zoloft 75 mg daily. 19. Metamucil 0.52 mg daily. 20. Protonix 40 mg daily. 21. Nystatin topical powder twice daily as needed. 22. Oxycodone 15 mg every 4 hours as needed. 23. Morphine oral solution 10 mg every 2 hours as needed. DISCHARGE PLAN: The patient will be discharged to [facility] for continued rehab. Palliative care may follow with her as an outpatient. TIME SPENT: Over 45 minutes was spent on this discharge, more than 30 minutes of which was spent in direct [id number] contact with the patient in evaluation , physical exam, counseling, and coordination of care. [id number]/[facility] [place] #: [id number] LAURITA
== END 2017-02-22 15:10 | DRG 191 ==
LOC: ED 19:42 → MED 22:33
PROVIDERS: ADMIT Internal Medicine; ATTEND Internal Medicine
DX: J44.1 Chronic obstructive pulmonary disease with (acute) exacerbation (principal); J96.10 Chronic respiratory failure, unspecified whether with hypoxia or hypercapnia; Z99.81 Dependence on supplemental oxygen; K25.9 Gastric ulcer, unspecified as acute or chronic, without hemorrhage or perforation; F32.9 Major depressive disorder, single episode, unspecified; G47.33 Obstructive sleep apnea (adult) (pediatric); G89.29 Other chronic pain; I10 Essential (primary) hypertension; E03.9 Hypothyroidism, unspecified; G43.909 Migraine, unspecified, not intractable, without status migrainosus; M48.00 Spinal stenosis, site unspecified; M81.0 Age-related osteoporosis without current pathological fracture; Z85.3 Personal history of malignant neoplasm of breast; Z79.891 Long term (current) use of opiate analgesic; Z79.899 Other long term (current) drug therapy; Z88.6 Allergy status to analgesic agent; Z91.048 Other nonmedicinal substance allergy status; Z82.49 Family history of ischemic heart disease and other diseases of the circulatory system; Z83.3 Family history of diabetes mellitus; Z80.3 Family history of malignant neoplasm of breast; Z87.891 Personal history of nicotine dependence
CPT/HCPCS: 36415; 71010; 80048; 80053; 83605; 83880; 84484; 85025; 85379; 85610; 86140; 87040; 87641; 93005; 94640; 94660; 94760; A9270-GY; J1644; J2930; J7512